=== PATIENT | female | born 1995 | race Caucasian/White ===

== ENCOUNTER → 2018-04-11 14:01 | Outpatient (CLI) | payer BC, SELFPAY ==
[2018-04-11 13:02] VITALS: BMI 27.1
[2018-04-11 14:33] LABS: Absolute Lymphocyte Count 1.66 X10^3/ul (0.83-4.51); Absolute Neutrophil Count 5.7 X10^3/uL (2.0-7.7); Basophil# 0.01 X10^3/uL; Basophil% 0.1 % (0-1); Eosinophil# 0.03 X10^3/uL; Eosinophils% 0.4 % (0-5); Hematocrit 37.9 % (37-47); Hemoglobin 12.7 g/dl (12.0-15.0); Lymphocyte # 1.66 X10^3/ul (4.0); Lymphocyte % 21.2 % (19-41); Mean Corp Hgb Conc 33.5 g/gl (32-36); Mean Corpuscular Hgb 29.5 pg (27.0-32.0); Mean Corpuscular Volume 87.9 fL (81-99); Mean Platelet Vol. 12.1 fl (6.2-12.0); Monocyte# 0.44 X10^3/uL; Monocyte% 5.6 % (0-10); Neutrophil # 5.67 X10^3/uL (2.7-7.7); Neutrophil % 72.6 % (47-70); Platelet Count 137 K/mm3 (150-450); RBC Distribution Width SD 38.1 fl (35.1-43.9); Red Blood Count 4.31 M/mm3 (4.2-5.4); White Blood Count 7.8 K/mm3 (4.4-11.0)
[2018-04-11 14:35] LABS: POSITIVE COUNT NO; POSITIVE DIFFERENTIAL NO; POSITIVE MORPHOLOGY NO
[2018-04-11 16:13] LABS: HIV - WCH Non-Reactive (Nonreactive); Rubella IgG 276.5 IU/mL
[2018-04-11 21:53] LABS: Chlamydia Trachomatis by PCR Negative (Negative); Neisserai gonorrhoeae by PCR Negative (Negative); Probe Check PASS; Sample Adequacy Control PASS; Specimen Processing Control PASS
[2018-04-12 12:05] LABS: HEPATITIS B SURFACE AG Negative (Negative)
[2018-04-13 23:34] LABS: Rapid Plasmin Reagin (RPR) NONREACTIVE (NONREACTIVE)
== END ==
PROVIDERS: Referring Provider Obstetrics & Gynecology; Visit Provider Obstetrics & Gynecology
DX: Z34.90 Encounter for supervision of normal pregnancy, unspecified, unspecified trimester (principal)
CPT/HCPCS: 36415; 85025; 86592; 86703; 86762; 86850; 86900; 87086; 87340; 87491; 87591

== ENCOUNTER → 2018-05-12 16:56 | Outpatient (CLI) | payer BC, SELFPAY ==
[2018-05-12 16:06] VITALS: BMI 27.8
[2018-05-12 17:30] LABS: Absolute Lymphocyte Count 1.85 X10^3/ul (0.83-4.51); Absolute Neutrophil Count 4.7 X10^3/uL (2.0-7.7); Basophil# 0.01 X10^3/uL; Basophil% 0.1 % (0-1); Eosinophil# 0.06 X10^3/uL; Eosinophils% 0.8 % (0-5); Hematocrit 35.6 % (37-47); Hemoglobin 11.8 g/dl (12.0-15.0); Lymphocyte # 1.85 X10^3/ul (4.0); Mean Corp Hgb Conc 33.1 g/gl (32-36); Mean Corpuscular Hgb 28.9 pg (27.0-32.0); Mean Platelet Vol. 12.5 fl (6.2-12.0); Monocyte# 0.48 X10^3/uL; Monocyte% 6.7 % (0-10); Neutrophil # 4.71 X10^3/uL (2.7-7.7); Neutrophil % 66.3 % (47-70); Platelet Count 141 K/mm3 (150-450); RBC Distribution Width CV 11.9 % (11.6-14.6); Red Blood Count 4.09 M/mm3 (4.2-5.4); White Blood Count 7.1 K/mm3 (4.4-11.0)
[2018-05-12 17:31] LABS: POSITIVE COUNT NO; POSITIVE DIFFERENTIAL NO; POSITIVE MORPHOLOGY NO
== END ==
PROVIDERS: Referring Provider Obstetrics & Gynecology; Visit Provider Obstetrics & Gynecology
DX: Z34.81 Encounter for supervision of other normal pregnancy, first trimester (principal)
CPT/HCPCS: 36415; 85025

== ENCOUNTER → 2018-06-09 16:30 | Outpatient (CLI) | payer BC, SELFPAY ==
[2018-06-09 16:17] VITALS: BMI 27.8
== END ==
PROVIDERS: Referring Provider Obstetrics & Gynecology; Visit Provider Obstetrics & Gynecology
DX: Z36.9 Encounter for antenatal screening, unspecified (principal)
CPT/HCPCS: 36415

== ENCOUNTER → 2018-08-11 | Outpatient (CLI) | payer BC, SELFPAY ==
[2018-08-11 16:02] VITALS: BMI 27.8
[2018-08-11 17:12] LABS: Absolute Lymphocyte Count 1.56 X10^3/ul (0.83-4.51); Absolute Neutrophil Count 6.3 X10^3/uL (2.0-7.7); Basophil# 0.01 X10^3/uL; Basophil% 0.1 % (0-1); Eosinophil# 0.04 X10^3/uL; Eosinophils% 0.5 % (0-5); Hemoglobin 11.1 g/dl (12.0-15.0); Lymphocyte # 1.56 X10^3/ul (4.0); Lymphocyte % 18.4 % (19-41); Mean Corp Hgb Conc 33.6 g/gl (32-36); Mean Corpuscular Hgb 29.4 pg (27.0-32.0); Mean Corpuscular Volume 87.5 fL (81-99); Monocyte% 5.9 % (0-10); Platelet Count 124 K/mm3 (150-450); RBC Distribution Width CV 13.2 % (11.6-14.6); RBC Distribution Width SD 42.5 fl (35.1-43.9); Red Blood Count 3.77 M/mm3 (4.2-5.4); White Blood Count 8.5 K/mm3 (4.4-11.0)
[2018-08-11 17:14] LABS: POSITIVE COUNT NO; POSITIVE DIFFERENTIAL NO; POSITIVE MORPHOLOGY NO
[2018-08-11 17:23] LABS: Glucose Challenge Gest 1H 50g 192 mg/dL (70-140)
== END | disposition home or self-care (01) ==
LOC: LAB 16:32
PROVIDERS: Nurse Practitioner Women's Health; Referring Provider Obstetrics & Gynecology; Visit Provider Obstetrics & Gynecology
DX: Z34.90 Encounter for supervision of normal pregnancy, unspecified, unspecified trimester (principal)
CPT/HCPCS: 36415; 82950; 85025

== ENCOUNTER → 2018-08-31 | Outpatient (CLI) | payer BC, SELFPAY ==
[2018-08-11 16:02] VITALS: BMI 27.8
[2018-08-25 13:58] VITALS: BMI 27.8
[2018-08-31 08:06] LABS: Glucose GTT-Gestation. Fasting 80 mg/dL (<105)
[2018-08-31 08:58] LABS: Glucose GTT-Gestational 1 Hr 182 mg/dL (<190)
[2018-08-31 10:35] LABS: Glucose GTT-Gestational 2 Hr 173 mg/dL (<165)
[2018-08-31 11:42] LABS: Glucose GTT-Gestational 3 Hr 67 L (<145)
== END | disposition home or self-care (01) ==
LOC: LAB 07:01
PROVIDERS: Referring Provider Obstetrics & Gynecology; Visit Provider Obstetrics & Gynecology
DX: R73.09 Other abnormal glucose (principal)
CPT/HCPCS: 36415; 82951; 82952

== ENCOUNTER → 2018-09-08 | Outpatient (CLI) | payer BC, SELFPAY ==
[2018-09-08 14:53] VITALS: BMI 27.8
[2018-09-08 17:10] LABS: Absolute Neutrophil Count 6.3 X10^3/uL (2.0-7.7); Basophil# 0.01 X10^3/uL; Basophil% 0.1 % (0-1); Eosinophil# 0.02 X10^3/uL; Eosinophils% 0.2 % (0-5); Hematocrit 36.4 % (37-47); Hemoglobin 12.1 g/dl (12.0-15.0); Lymphocyte % 17.8 % (19-41); Mean Corp Hgb Conc 33.2 g/gl (32-36); Mean Corpuscular Hgb 28.8 pg (27.0-32.0); Mean Corpuscular Volume 86.7 fL (81-99); Mean Platelet Vol. 12.8 fl (6.2-12.0); Monocyte# 0.56 X10^3/uL; Monocyte% 6.7 % (0-10); Neutrophil # 6.25 X10^3/uL (2.7-7.7); Neutrophil % 74.4 % (47-70); Platelet Count 117 K/mm3 (150-450); RBC Distribution Width CV 12.7 % (11.6-14.6); RBC Distribution Width SD 39.2 fl (35.1-43.9); White Blood Count 8.4 K/mm3 (4.4-11.0)
[2018-09-08 17:11] LABS: POSITIVE COUNT NO; POSITIVE DIFFERENTIAL NO; POSITIVE MORPHOLOGY NO
== END | disposition home or self-care (01) ==
LOC: LAB 15:32
PROVIDERS: Referring Provider Nurse Practitioner Women's Health; Visit Provider Nurse Practitioner Women's Health
DX: Z34.90 Encounter for supervision of normal pregnancy, unspecified, unspecified trimester (principal)
CPT/HCPCS: 36415; 85025

== ENCOUNTER 2018-10-02 12:00 | Outpatient (RCR) | payer BC, SELFPAY ==
[2018-09-08 14:53] VITALS: BMI 27.8
[2018-09-22 16:25] VITALS: BMI 27.8
== END 2018-10-04 23:59 ==
LOC: DC 12:00
PROVIDERS: Visit Provider Obstetrics & Gynecology
DX: O24.419 Gestational diabetes mellitus in pregnancy, unspecified control (principal); Z3A.00 Weeks of gestation of pregnancy not specified
CPT/HCPCS: 97802; G0108

== ENCOUNTER → 2018-10-06 | Outpatient (CLI) | payer BC, SELFPAY ==
[2018-10-06 16:10] VITALS: BMI 27.8
[2018-10-06 17:13] LABS: Absolute Lymphocyte Count 2.02 X10^3/uL (0.83-4.51); Absolute Neutrophil Count 6.9 X10^3/uL (2.0-7.7); Basophil# 0.03 X10^3/uL; Basophil% 0.3 % (0-1); Eosinophil# 0.05 X10^3/uL; Eosinophils% 0.5 % (0-5); Hematocrit 36.2 % (37-47); Lymphocyte # 2.02 X10^3/ul (4.0); Lymphocyte % 20.6 % (19-41); Mean Corp Hgb Conc 33.1 g/dL (32-36); Mean Corpuscular Hgb 28.9 pg (27.0-32.0); Mean Corpuscular Volume 87.2 fL (81-99); Mean Platelet Vol. 12.4 fl (6.2-12.0); Monocyte# 0.62 X10^3/uL; Monocyte% 6.3 % (0-10); NRBC Flagged by Analyzer 0 % (0-5); Neutrophil % 70.3 % (47-70); Platelet Count 111 K/mm3 (150-450); RBC Distribution Width CV 12.6 % (11.6-14.6); RBC Distribution Width SD 39.5 fl (35.1-43.9); Red Blood Count 4.15 M/mm3 (4.2-5.4); White Blood Count 9.8 K/mm3 (4.4-11.0)
== END | disposition home or self-care (01) ==
LOC: LAB 16:42
PROVIDERS: Referring Provider Obstetrics & Gynecology; Visit Provider Obstetrics & Gynecology
DX: O99.119 Other diseases of the blood and blood-forming organs and certain disorders involving the immune mechanism complicating pregnancy, unspecified trimester (principal); D69.6 Thrombocytopenia, unspecified; Z3A.00 Weeks of gestation of pregnancy not specified
CPT/HCPCS: 36415; 85025

== ENCOUNTER 2018-10-16 15:30 | Outpatient (RCR) | payer BC, SELFPAY ==
[2018-09-22 16:25] VITALS: BMI 27.8
[2018-10-06 16:10] VITALS: BMI 27.8
== END 2018-10-16 23:59 | disposition home or self-care (01) ==
LOC: DC 15:30
PROVIDERS: Visit Provider Obstetrics & Gynecology
DX: O24.419 Gestational diabetes mellitus in pregnancy, unspecified control (principal); Z3A.00 Weeks of gestation of pregnancy not specified

== ENCOUNTER → 2018-10-20 | Outpatient (CLI) | payer BC, SELFPAY ==
[2018-10-20 16:05] VITALS: BMI 27.8
== END | disposition home or self-care (01) ==
LOC: LABSPEC 17:07
PROVIDERS: Visit Provider Obstetrics & Gynecology
DX: Z34.90 Encounter for supervision of normal pregnancy, unspecified, unspecified trimester (principal)
CPT/HCPCS: 87077; 87081; 87186

== ENCOUNTER → 2018-11-03 | Outpatient (CLI) | payer BC, SELFPAY ==
[2018-11-03 16:00] VITALS: BMI 27.8
[2018-11-03 17:12] LABS: Absolute Lymphocyte Count 2.28 X10^3/uL (0.83-4.51); Absolute Neutrophil Count 8.4 X10^3/uL (2.0-7.7); Basophil# 0.03 X10^3/uL; Basophil% 0.3 % (0-1); Eosinophil# 0.04 X10^3/uL; Eosinophils% 0.3 % (0-5); Hematocrit 39.2 % (37-47); Hemoglobin 13.1 g/dL (12.0-15.0); Lymphocyte # 2.28 X10^3/ul (4.0); Lymphocyte % 19.4 % (19-41); Mean Corp Hgb Conc 33.4 g/dL (32-36); Mean Corpuscular Hgb 29.3 pg (27.0-32.0); Mean Corpuscular Volume 87.7 fL (81-99); Mean Platelet Vol. 12.9 fl (6.2-12.0); Monocyte# 0.78 X10^3/uL; Monocyte% 6.6 % (0-10); NRBC Flagged by Analyzer 0 % (0-5); Neutrophil # 8.44 X10^3/uL (2.7-7.7); Neutrophil % 71.8 % (47-70); Platelet Count 123 K/mm3 (150-450); RBC Distribution Width SD 40.8 fl (35.1-43.9); Red Blood Count 4.47 M/mm3 (4.2-5.4); White Blood Count 11.8 K/mm3 (4.4-11.0)
== END | disposition home or self-care (01) ==
LOC: LAB 16:56
PROVIDERS: Nurse Practitioner Women's Health; Referring Provider Obstetrics & Gynecology; Visit Provider Obstetrics & Gynecology
DX: O99.113 Other diseases of the blood and blood-forming organs and certain disorders involving the immune mechanism complicating pregnancy, third trimester (principal); Z3A.00 Weeks of gestation of pregnancy not specified
CPT/HCPCS: 36415; 85025

== ENCOUNTER 2018-11-08 14:00 | Inpatient (IN) | payer BC, SELFPAY ==
[2018-11-08 09:07] VITALS: BMI 27.8
--- NOTE | 2018-11-08 10:35 | US_ITS ---
STUDY: OBSTETRICAL ULTRASOUND - BIOPHYSICAL PROFILE REASON FOR EXAM: Female, 23 years old. well being. LMP: February 10, 2018. PRIOR ULTRASOUND: None. TECHNIQUE: Transabdominal TECHNICAL QUALITY: Adequate. FINDINGS: There is a single intrauterine fetus. The fetus is in a cephalic presentation. There is demonstrated cardiac activity with a heart rate of 132 bpm. There is a normal amniotic fluid volume. The largest amniotic fluid pocket measures 5.7 cm. The amniotic fluid index (MARISSA) is 16.65 cm. The placenta is fundal in location. There are Grade 3 placental changes. Age by LMP: 38 weeks, 5 days. RUBEN by LMP: November 17, 2018. Gender: Female Low level echoes are noted within the amniotic fluid. BIOPHYSICAL PROFILE: Breathing Movements (FBM): 0 Gross Body Movements (GBM): 0 Tone (FT): 2 Amniotic Fluid Volume (AFV): 2 TOTAL SCORE: 4 / 8 US/Biophysical Prof W/O Non Stres IMPRESSION: biophysical profile of 4/8. Low-level echoes are seen within the amniotic fluid. Electronically Signed: Osiel Gaspar, at 14:08 EDT , Service support ,
[2018-11-08 11:12] VITALS: BMI 35.7
[2018-11-08] MEDS: Lactated Ringers 1,000 ML 50 ML IV (14:25)
[2018-11-08 14:41] LABS: Bedside Glucose 78 mg/dL (70-110)
[2018-11-08 14:47] LABS: Absolute Lymphocyte Count 1.53 X10^3/uL (0.83-4.51); Absolute Neutrophil Count 6.8 X10^3/uL (2.0-7.7); Basophil# 0.03 X10^3/uL; Basophil% 0.3 % (0-1); Eosinophil# 0.01 X10^3/uL; Eosinophils% 0.1 % (0-5); Hematocrit 40.4 % (37-47); Hemoglobin 13.2 g/dL (12.0-15.0); Lymphocyte # 1.53 X10^3/ul (4.0); Lymphocyte % 17.2 % (19-41); Mean Corp Hgb Conc 32.7 g/dL (32-36); Mean Corpuscular Hgb 28.4 pg (27.0-32.0); Mean Corpuscular Volume 87.1 fL (81-99); Mean Platelet Vol. 12.7 fl (6.2-12.0); Monocyte# 0.44 X10^3/uL; Monocyte% 4.9 % (0-10); NRBC Flagged by Analyzer 0 % (0-5); Neutrophil # 6.77 X10^3/uL (2.7-7.7); Neutrophil % 76.3 % (47-70); Platelet Count 119 K/mm3 (150-450); RBC Distribution Width CV 13.2 % (11.6-14.6); RBC Distribution Width SD 41.1 fl (35.1-43.9); Red Blood Count 4.64 M/mm3 (4.2-5.4); White Blood Count 8.9 K/mm3 (4.4-11.0)
[2018-11-08] MEDS: 0.9% Normal Saline 100 ML IV.SOLN. IY (15:15)
[2018-11-08] MEDS: Oxytocin 30 units/NS 500 ml 30 UNITS/500 ML IV.SOLN IV (16:05)
--- NOTE | 2018-11-08 16:49 | PCM.HP.OB ---
- Problem List (1) at 37 weeks gestation or greater with abnormal testing Status: Acute (2) Positive GBS test Status: Acute Comment: clindamycin at labor (3) Polyhydramnios affecting Status: Acute Comment: Weekly NSTs in our office, weekly BPP/AFIs at [facility]. Growth US every 4 weeks. Daily kick counts (4) Gestational diabetes Status: Acute Qualifiers: Comment: growth us q 4 weeks, diabetic diet (5) Gestational thrombocytopenia Status: Acute Qualifiers: Comment: Repeat CBC 4 weeks (6) Status: Acute Qualifiers: Comment: NIPT nl girlcarrier declined, negative AFP. normal anatomy and growth (7) Supervision of normal Status: Acute Qualifiers: Comment: PRR RUBEN 11/17/18 girl argelia TATUM AJ (8) Abnormal Pap smear of cervix Status: Acute Qualifiers: Comment: repeat pap History Date of Admission: 11/08/18 Final RUBEN: 11/17/18 Gestational age: 38 Weeks and 5 Days History of this : This is a 23 year-old, , at 38 weeks gestational age sent for induction of labor secondary to 4 out of 8 BPP and isolated late decelerations on heart rate tracing. Patient is feeling good movement now and overall now has a category 1 tracing and is reassuring. Patient was consented for induction of labor and patient agreed. Patient denies any vaginal bleeding or loss of fluid. She has had a complicated by well-controlled gestational diabetes with diet control.. Medical History: Medical History (Last Reviewed 11/08/18 @ 08:31 by Reta Yeung) ADHD F90.9 Allergies No Known Allergies Allergy (Verified 11/08/18 08:31) Home Medications: Home Medications docosahexanoic acid 200 mg capsule mg PO cap 04/11/18 blood sugar diagnostic strips See Rx Instructions .ROUTE .MEDSUPPLY #100 ea 09/08/18 blood-glucose meter kit See Rx Instructions .ROUTE .MEDSUPPLY #1 ea 09/08/18 lancets 33 gauge See Rx Instructions .ROUTE .MEDSUPPLY #100 ea 10/17/18 Caplet 1 tab PO DAILY 11/08/18 Smoking Status: Never smoker Alcohol: None Number of Fetus(es): 1 NST - FHR Rate Baby A Baseline: 130 Variability:: Moderate Accelerations:: 15 x 15 Decelerations:: None NST Reactive:: Yes FHR Category:: Category I Uterine Activity:: irregular History Past Pregnancies: Past Pregnancies Delivery Date Name GA/Weeks Outcome Route Weight Infant Gender Labor Length Anesthesia Delivery Location Provider FOB Labs: Mom's Labs & Results 11/08/18 11/08/18 11/08/18 14:02 14:25 14:25 WBC 8.9 RBC 4.64 Hgb 13.2 Hct 40.4 MCV 87.1 MCH 28.4 MCHC 32.7 RDW Std Deviation 41.1 RDW Coeff of Kaylee 13.2 Plt Count 119 L MPV 12.7 H Immature Gran % (Auto) 1.200 H Neut % (Auto) 76.3 H Lymph % (Auto) 17.2 L [place] % (Auto) 4.9 Eos % (Auto) 0.1 Baso % (Auto) 0.3 Absolute Neuts (auto) 6.8 Absolute Lymphs (auto) 1.53 Nucleated RBC % 0 POC Glucose 78 Blood Type A POSITIVE Antibody Screen NEGATIVE Course Did the patient receive Yes care? Labs Blood Type: A RH: POSITIVE RPR/VDRL/Syphilis Nonreactive Rubella status Immune HbSAg Negative Date Done: 04/15/18 Chlamydia Negative Gonorrhea Negative HIV/AIDS Non-Reactive Group B Strep: Positive Current Obstetrical History Gestational Diabetes Yes Incompetent Cervix No Infertility No IUGR No Macrosomia No Hypertension/Pre-eclampsia No Placenta Previa/Abruption No: low lying early in PTL/PROM No Uterine anomaly No Oligohydramnios No Polyhydramnios Yes Multiple gestation No Past Medical History Asthma No Diabetes No Hypertension No Heart disease No Mitral valve prolapse No Neurologic/Seizure disorder/ No Migraines Kidney disease No Liver disease No Varicosities No Clotting disorders/Hx of DVT No Thyroid Dysfunction No Other medical diseases No Psychiatric disorders Yes: ADHD Major trauma No Abnormal PAP smear Yes: 01/2018-mishaped cells? didnt need tx Sleep apnea No Mammogram in the last 2 years No Social History Marital Status: Alleged father AJ Hx Smoking No Smoking Status Never smoker How long have you used n/a substances (years)? Expected Infant Delivery Method: Spontaneous Vaginal Review of Systems Constitutional: Denies: Fever, Malaise Eyes: Denies: Blurred vision, Vision Change HEENT: Denies: Head Aches, Visual Changes Cardiovascular: Denies: Chest Pain, Palpitations Respiratory: Denies: Cough, Shortness of Breath, Wheezing Gastrointestinal: Denies: Abdominal Pain, Diarrhea, Nausea, Vomiting Genitourinary: Denies: Dysuria, Hematuria Musculoskeletal: Denies: Joint Pain, Muscle pain Skin: Denies: Lesions, Rash Neurological: Denies: Blurred vision, Focal weakness, Headaches Psychiatric: Denies: Anxiety, Depression Endocrine: Denies: Heat/ Cold Intolerance Hematologic/ Lymphatic: Denies: Easy Bruising, Easy Bleeding Physical Exam General: Alert, Cooperative, No apparent distress HEENT: Atraumatic, Normocephalic. Negative for: Thyromegaly, Lymphadenopathy Cardiovascular: Regular rate Lungs: Normal air movement Abdomen: Soft, Non Tender, Gravid Neurological: Deep Tendon Reflexes 2+/4 and Symmetrical, Neuro grossly intact. Negative for: Clonus MANAGER ARCHITECTURAL: Normal external genitalia. Negative for: Vulvar lesions Estimated gestational size: Appropriate for gestational size Presentation: Cephalic Assessment/Plan All Active Problems (Last Reviewed 11/08/18 @ 08:31 by Reta Yeung) at 37 weeks gestation or greater with abnormal testing (Acute) Positive GBS test (Acute) Polyhydramnios affecting (Acute) Gestational diabetes (Acute) Gestational thrombocytopenia (Acute) (Acute) Supervision of normal (Acute) Abnormal Pap smear of cervix (Acute) Abnormal glucose (Resolved) Low lying placenta nos or without hemorrhage, second trimester (Resolved) This is a 23 year-old, at 38 weeks gestational age presents IOL abnormal testing. Patient presents IOL, plan management for , pitocin/AROM after Jacques bulb comes out.. Pain management: [plans epidural]. GBS positive plan penicillin. Management of any complications: Gestational diabetes diet controlled plan blood sugars every 4 hours in latent phase and q. one hour in active phase of labor goal of blood sugars to be under 150 prior to delivery. I have reviewed the [facility] and made any clinically relevant updates.
[2018-11-08 17:25] LABS: Bedside Glucose 82 mg/dL (70-110)
[2018-11-08] MEDS: Ondansetron 4 MG/2 ML Vial IV (18:46)
[2018-11-08] MEDS: Nalbuphine 10 MG/ML Ampul IV (18:53)
[2018-11-08] MEDS: Lactated Ringers 500 ML 999 ML IV (20:05)
[2018-11-08 21:11] LABS: Bedside Glucose 98 mg/dL (70-110)
[2018-11-08] MEDS: fentaNYL-bupivacaine (epidural) 100 ML BAG EPIDURAL (21:51)
--- NOTE | 2018-11-09 00:44 | PN_ITS ---
Progress Note 150 moderate variability reactive early decelerations category I tracing [place]: regular arom blood tinged bs 98 pcn on continue pit per protocol
--- NOTE | 2018-11-09 00:44 | PCM.PN.BLA ---
Progress Note 150 moderate variability reactive early decelerations category I tracing [place]: regular arom blood tinged bs 98 pcn on continue pit per protocol
[2018-11-09 01:26] LABS: Bedside Glucose 101 mg/dL (70-110)
[2018-11-09] MEDS: Lactated Ringers 1,000 ML 200 ML IV ×2 (02:05→06:48)
[2018-11-09] MEDS: fentaNYL-bupivacaine (epidural) 100 ML BAG EPIDURAL ×2 (02:06→06:48)
[2018-11-09 06:16] LABS: Bedside Glucose 83 mg/dL (70-110)
[2018-11-09 06:16] LABS: Bedside Glucose 93 mg/dL (70-110)
[2018-11-09 07:20] LABS: Bedside Glucose 92 mg/dL (70-110)
[2018-11-09 08:31] LABS: Bedside Glucose 81 mg/dL (70-110)
[2018-11-09 09:30] LABS: Bedside Glucose 77 mg/dL (70-110)
[2018-11-09 10:36] LABS: Bedside Glucose 77 mg/dL (70-110)
--- NOTE | 2018-11-09 11:04 | PCM.PN.BLA ---
Progress Note Patient has been pushing over 3 hours. heart rate tracing starting to have periodic variables. station +4 but maternal effort incomplete. Pelvis feels adequate and patient and has been counseled regarding pelvis feels adequate however she is at a higher risk for shoulder dystocia due to diabetes and estimated weight at 4000 g. Primary is not recommended based on estimated weight alone and due to the descent of the head with effective maternal effort I am confident in vaginal delivery however recommend a double set up to have all resources available if vaginal delivery is not possible. Patient and wish to proceed with vaginal delivery. We will take to the back and perform episiotomy and possible vacuum delivery if needed. if necessary.
[2018-11-09] MEDS: Oxytocin 30 units/NS 500 ml 30 UNITS/500 ML IV.SOLN 334 UNITS IV (11:25)
[2018-11-09] MEDS: Methylergonovine 0.2 MG/ML Ampul IM (11:28)
[2018-11-09 13:21] LABS: Bedside Glucose 89 mg/dL (70-110)
--- NOTE | 2018-11-09 13:45 | PCM.OPRPT ---
Problem List (1) at 37 weeks gestation or greater with abnormal testing Status: Acute (2) Positive GBS test Status: Acute Comment: clindamycin at labor (3) Polyhydramnios affecting Status: Acute Comment: Weekly NSTs in our office, weekly BPP/AFIs at [facility]. Growth US every 4 weeks. Daily kick counts (4) Gestational diabetes Status: Acute Qualifiers: Comment: growth us q 4 weeks, diabetic diet (5) Gestational thrombocytopenia Status: Acute Qualifiers: Comment: Repeat CBC 4 weeks (6) Status: Acute Qualifiers: Comment: NIPT nl girlcarrier declined, negative AFP. normal anatomy and growth (7) Supervision of normal Status: Acute Qualifiers: Comment: PRR RUBEN 11/17/18 girl argelia DEEPTI SANCHEZ (8) Abnormal Pap smear of cervix Status: Acute Qualifiers: Comment: repeat pap Vaginal Delivery Maternal Presentation: Medically Indicated Induction 23-year-old G1, P0 at 38 weeks 5 days presents for induction of labor secondary to abnormal testing with 4 out of 8 BPP and late deceleration on NST in the office. Overall heart tones are reassuring. Patient had gestational diabetes controlled with diet alone and polyhydramnios. Estimated weight of 3750 to 4000 g Method of Induction: Pitocin, Jacques Bulb Medical Reason for Induction: - - Abnormal testing Amniotic Membrane Rupture Type: Artificial Amniotic Fluid Description: Clear Final RUBEN: 11/17/18 Gestational age: 38 Weeks and 6 Days Date of Procedure: 11/09/18 Pre-Operative Diagnosis: GDM A1, recurrent variable decelerations, prolonged second stage Post-Operative Diagnosis: Same Surgery/ Procedure Performed: Vacuum Assisted Vaginal Delivery Type of Anesthesia: Epidural Description of Procedure: Patient proceed to complete dilation and began pushing. Patient had a strong epidural and had a limited sensation and therefore pushing effort was not always adequate at times. Patient continued pushing and after 3-1/2 hours of pushing was at a +4 station with adequate pelvic outlet assessment and estimated weight to be 3750 to 4000 g. Patient was consented for episiotomy and operative vaginal delivery with a double set up in case and patient wished to proceed with vacuum delivery. Right mediolateral episiotomy was cut and vacuum was applied the +4 station the infant was MARTIN 1 pole was made with no pop offs with 1 contraction and the 's head delivered atraumatically MARTIN followed by the anterior posterior shoulders as the infant was delivered through a tight nuchal cord x1. was placed on maternal abdomen terminal meconium was noted. Cord was clamped and cut and the infant was handed off to waiting agricultural sales representative for analysis. No extension of the episiotomy was seen and it was at the level of a second-degree perineal which was repaired in the usual fashion with 3-0 Vicryl repeat. EBL was 600 cc. Patient and infant tolerated the delivery well and were taken recovery in stable condition. Presentation: MARTIN Placental Delivery Description: Spontaneous Cord Vessel Description: 3 Vessels Nuchal Cord Compression: With compression Cord Entanglement: Around neck x 1, loose Drain: Jacques to straight drain Estimated Blood Loss: 600 A gender: Female Episiotomy Description: Right Mediolateral Laceration: Perineal Extension/lac, 2nd degree Medications given after delivery: IV Pitocin Complications: None Multi Select Codes - Urinary/Genital Urinary/Genital CPT Codes: 69462 Episiotomy or vaginal repair, 39872 Vaginal Delivery [facility]
--- NOTE | 2018-11-09 14:50 | NURSING ---
Epidural catheter D/c'd. Blue tip intact.
[2018-11-09] MEDS: Naproxen 250 MG Tablet 500 MG PO (16:56)
[2018-11-09 18:00] VITALS: BP 117/76; PULSE 88; RESP 16; TEMP 36.7
[2018-11-09 19:48] VITALS: BP 122/64; PULSE 85; RESP 18; TEMP 37
[2018-11-09] MEDS: Acetaminophen 500 MG Tablet 1000 MG PO (19:50)
[2018-11-10] VITALS: BP 113/59; PULSE 74; RESP 16; TEMP 36.3
[2018-11-10] MEDS: Naproxen 250 MG Tablet 500 MG PO ×3 (01:01→17:16)
[2018-11-10 04:00] VITALS: BP 106/65; PULSE 82; RESP 16; TEMP 35.9
[2018-11-10] MEDS: Acetaminophen 500 MG Tablet 1000 MG PO ×2 (04:36→14:18)
[2018-11-10 06:15] LABS: Bedside Glucose 84 mg/dL (70-110)
[2018-11-10 08:53] VITALS: BP 107/62; PULSE 66; RESP 16; TEMP 36.5; O2SAT 99
[2018-11-10 14:11] VITALS: BP 97/58; PULSE 70; RESP 16; TEMP 36.2
--- NOTE | 2018-11-10 17:30 | PCM.PN.OB ---
Patient Problems: Active and Suspected Problems (Last Reviewed 11/08/18 @ 08:31 by Reta Yeung) at 37 weeks gestation or greater with abnormal testing (Acute) Subjective: doing well no complaints pain controlled no CP SOB N V ambulating well tolerating po lochia moderate, going well - Physical Exam General: Alert, Oriented x3 Vital Signs Temp Pulse Resp BP Pulse Ox 97.2 F L 70 16 97/58 L 99 11/10/18 14:11 11/10/18 14:11 11/10/18 14:11 11/10/18 14:11 11/10/18 08:53 Oxygen Delivery Method Room Air Weight: 214 lb 11.684 oz Body Mass Index (BMI) 35.7 Intake and Output for Last 24 Hours 11/08/18 11/09/18 11/10/18 23:59 23:59 23:59 Intake Total 1051.81 / 1051.81 3205.77 / 3205.77 Output Total 150 / 150 2775 / 3075 300 / 300 Balance 901.81 / 901.81 430.77 / 130.77 -300 / -300 POC Glucose 11/10/18 06:10 POC Glucose 84 Medical Necessity - Tobacco Use Smoking Status: Never smoker Assessment/Plan All Active Problems (Last Reviewed 11/08/18 @ 08:31 by Reta Yeung) at 37 weeks gestation or greater with abnormal testing (Acute) Positive GBS test (Acute) Polyhydramnios affecting (Acute) Gestational diabetes (Acute) Gestational thrombocytopenia (Acute) (Acute) Supervision of normal (Acute) Abnormal Pap smear of cervix (Acute) Abnormal glucose (Resolved) Low lying placenta nos or without hemorrhage, second trimester (Resolved) s/p PPD # 1 1. routine post delivery care 2. breast feeding- support given 3. rh positive 4. rubella immune
[2018-11-10] MEDS: Senna/Docusate Sodium 1 Tablet PO (18:28)
[2018-11-10 20:00] VITALS: BP 111/56; PULSE 78; RESP 16; TEMP 37.3
--- NOTE | 2018-11-11 01:50 | DCINST_ITS ---
Additional Instructions: If you experience any of the following, contact your healthcare provider. * Bleeding that soaks a pad every hour for 2 hours * Fever 100.4 or higher * Unrelieved incision or abdominal pain * Swelling, redness, discharge or bleeding from your incision or episiotomy site * Your incision begins to separate * Problems urinating (including inability to urinate or burning while urinating). * Visual changes * Severe headache * Flu-like symptoms * Pain or redness in one of both of your breasts * Pain, warmth, tenderness or swelling in your legs, especially the calf area * Frequent nausea and vomiting * Symptoms of depression or anxiety If you experience any of the following, call 911 or go to the nearest Emergency Room. * Chest pain * Problems breathing * Seizure activity * Partial or complete paralysis of a body part, slurred speech, weakness or drooping of the face, or a sudden inability to walk or hold your balance Allergies/Adverse Reactions: Allergies No Known Allergies Allergy (Verified 11/08/18 08:31) Medications to take at Discharge docosahexanoic acid 200 mg capsule mg PO cap 04/11/18 blood sugar diagnostic strips See Rx Instructions .ROUTE .MEDSUPPLY #100 ea 09/08/18 blood-glucose meter kit See Rx Instructions .ROUTE .MEDSUPPLY #1 ea 09/08/18 lancets 33 gauge See Rx Instructions .ROUTE .MEDSUPPLY #100 ea 10/17/18 Caplet 1 tab PO DAILY 11/08/18 Primary Care Physician: Canelo Villarreal MD [Primary Care Provider] - Test Results: Test results from this visit will be discussed in further detail at your follow- up appointment, if applicable.
--- NOTE | 2018-11-11 01:50 | PCM.DCVAG ---
Additional Instructions: If you experience any of the following, contact your healthcare provider. Bleeding that soaks a pad every hour for 2 hours Fever 100.4 or higher Unrelieved incision or abdominal pain Swelling, redness, discharge or bleeding from your incision or episiotomy site Your incision begins to separate Problems urinating (including inability to urinate or burning while urinating). Visual changes Severe headache Flu-like symptoms Pain or redness in one of both of your breasts Pain, warmth, tenderness or swelling in your legs, especially the calf area Frequent nausea and vomiting Symptoms of depression or anxiety If you experience any of the following, call 911 or go to the nearest Emergency Room. Chest pain Problems breathing Seizure activity Partial or complete paralysis of a body part, slurred speech, weakness or drooping of the face, or a sudden inability to walk or hold your balance Allergies/Adverse Reactions: Allergies No Known Allergies Allergy (Verified 11/08/18 08:31) Medications to take at Discharge docosahexanoic acid 200 mg capsule mg PO cap 04/11/18 blood sugar diagnostic strips See Rx Instructions .ROUTE .MEDSUPPLY #100 ea 09/08/18 blood-glucose meter kit See Rx Instructions .ROUTE .MEDSUPPLY #1 ea 09/08/18 lancets 33 gauge See Rx Instructions .ROUTE .MEDSUPPLY #100 ea 10/17/18 Caplet 1 tab PO DAILY 11/08/18 Primary Care Physician: Canelo Villarreal MD [Primary Care Provider] - Test Results: Test results from this visit will be discussed in further detail at your follow-up appointment, if applicable.
[2018-11-11 02:00] VITALS: BP 93/53; PULSE 68; RESP 16; TEMP 36.3
[2018-11-11] MEDS: Naproxen 250 MG Tablet 500 MG PO (09:09)
[2018-11-11] MEDS: Senna/Docusate Sodium 1 Tablet PO (09:09)
[2018-11-11 09:10] VITALS: BP 104/61; PULSE 77; RESP 16; TEMP 36.5; O2SAT 99
--- NOTE | 2018-11-11 09:32 | PCM.PN.OB ---
Patient Problems: Active and Suspected Problems (Last Reviewed 11/08/18 @ 08:31 by Reta Yeung) at 37 weeks gestation or greater with abnormal testing (Acute) Subjective: doing well no complaints pain controlled no CP SOB N V ambulating well tolerating po lochia moderate, going well - Physical Exam General: Alert, Oriented x3 Vital Signs Temp Pulse Resp BP Pulse Ox 97.7 F L 77 16 104/61 99 11/11/18 09:10 11/11/18 09:10 11/11/18 09:10 11/11/18 09:10 11/11/18 09:10 Oxygen Delivery Method Room Air Weight: 214 lb 11.684 oz Body Mass Index (BMI) 35.7 Intake and Output for Last 24 Hours 11/09/18 11/10/18 11/11/18 23:59 23:59 23:59 Intake Total 3205.77 / 3205.77 Output Total 2775 / 3075 300 / 300 Balance 430.77 / 130.77 -300 / -300 Medical Necessity - Tobacco Use Smoking Status: Never smoker Assessment/Plan All Active Problems (Last Reviewed 11/08/18 @ 08:31 by Reta Yeung) at 37 weeks gestation or greater with abnormal testing (Acute) Positive GBS test (Acute) Polyhydramnios affecting (Acute) Gestational diabetes (Acute) Gestational thrombocytopenia (Acute) (Acute) Supervision of normal (Acute) Abnormal Pap smear of cervix (Acute) Abnormal glucose (Resolved) Low lying placenta nos or without hemorrhage, second trimester (Resolved) s/p PPD # 2 1. routine post delivery care 2. breast feeding- support given 3. rh positive 4. rubella immune
--- NOTE | 2018-11-11 13:47 | NURSING ---
discharge talk done pt verbalizes understanding d/c papers reviewed and given; pt denies any further need for infant or maternal care teaching.
[2018-11-11 14:09] VITALS: BP 98/53; PULSE 85; RESP 15; TEMP 36.6
--- NOTE | 2018-11-11 15:36 | NURSING ---
1515 placed in car seat per parents dc to home
== END 2018-11-11 15:15 | disposition home or self-care (01) | DRG 806 ==
LOC: WPOUT 14:19 → WP 11-09 07:14
PROVIDERS: Admitting Provider Obstetrics & Gynecology; Referring Provider Obstetrics & Gynecology; Visit Provider Obstetrics & Gynecology
DX: O24.420 Gestational diabetes mellitus in childbirth, diet controlled (principal); O98.82 Other maternal infectious and parasitic diseases complicating childbirth; Z37.0 Single live birth; O99.12 Other diseases of the blood and blood-forming organs and certain disorders involving the immune mechanism complicating childbirth; B95.1 Streptococcus, group B, as the cause of diseases classified elsewhere; O40.3XX0 Polyhydramnios, third trimester, not applicable or unspecified; D69.6 Thrombocytopenia, unspecified; O69.1XX0 Labor and delivery complicated by cord around neck, with compression, not applicable or unspecified; O77.0 Labor and delivery complicated by meconium in amniotic fluid; O70.1 Second degree perineal laceration during delivery; O76 Abnormality in fetal heart rate and rhythm complicating labor and delivery; Z3A.38 38 weeks gestation of pregnancy
CPT/HCPCS: 59025; 59050; 76819; 82962; 85025; 86850; 86900; 86901; 99218; J7120; G0378; J2405

== ENCOUNTER → 2018-12-21 | Outpatient (CLI) | payer BC, SELFPAY ==
[2018-12-21 13:29] LABS: Glucose 2 Hour Postprandial 70 mg/dL (<140)
== END | disposition home or self-care (01) ==
LOC: LAB 09:22
PROVIDERS: Nurse Practitioner Women's Health; Referring Provider Obstetrics & Gynecology; Visit Provider Obstetrics & Gynecology
DX: O24.419 Gestational diabetes mellitus in pregnancy, unspecified control (principal); Z3A.00 Weeks of gestation of pregnancy not specified
CPT/HCPCS: 36415; 82950

== ENCOUNTER → 2020-01-28 15:30 | Outpatient (CLI) | payer BC, SELFPAY ==
[2020-01-28 14:49] VITALS: BMI 28.8
[2020-01-28 18:25] LABS: Amphetamine Urine VISTA NEGATIVE (<1000 ng/mL); Barbiturate Urine VISTA NEGATIVE (< 200 ng/mL); Benzodiazepine Urine VISTA NEGATIVE (< 200 ng/mL); Cocaine Urine VISTA NEGATIVE (< 300 ng/mL); Ecstacy Urine VISTA NEGATIVE (< 500 ng/mL); Methadone Urine VISTA NEGATIVE (< 300 ng/mL); PCP Urine VISTA NEGATIVE (< 25 ng/mL); THC Urine VISTA NEGATIVE (< 50 ng/mL); Vista UDS pH Range 6
[2020-01-31 03:07] LABS: Chlamydia By Nucleic Acid AMP Negative (Negative)
[2020-01-31 08:46] LABS: Gonococcus By Nucleic Acid AMP Negative (Negative)
[2020-02-01 15:36] LABS: HPV Reflexed? NOT INDICATED
== END ==
PROVIDERS: Referring Provider Obstetrics & Gynecology; Visit Provider Obstetrics & Gynecology
DX: Z12.4 Encounter for screening for malignant neoplasm of cervix (principal); Z34.80 Encounter for supervision of other normal pregnancy, unspecified trimester
CPT/HCPCS: 80307; 87086; 87088; 87491; 87591; 88175; G0145

== ENCOUNTER → 2020-02-27 14:30 | Outpatient (CLI) | payer BC, SELFPAY ==
[2020-01-28 14:49] VITALS: BMI 28.8
[2020-02-27 15:25] LABS: Absolute Lymphocyte Count 1.98 X10^3/uL (0.83-4.51); Absolute Neutrophil Count 5.7 X10^3/uL (2.0-7.7); Basophil# 0.02 X10^3/uL; Basophil% 0.2 % (0-1); Eosinophil# 0.05 X10^3/uL; Eosinophils% 0.6 % (0-5); Hemoglobin 12.3 g/dL (12.0-15.0); Lymphocyte # 1.98 X10^3/ul (4.0); Lymphocyte % 24.2 % (19-41); Mean Corp Hgb Conc 33.2 g/dL (32-36); Mean Corpuscular Hgb 29.1 pg (27.0-32.0); Mean Corpuscular Volume 87.5 fL (81-99); Mean Platelet Vol. 12.5 fl (6.2-12.0); Monocyte# 0.36 X10^3/uL; Monocyte% 4.4 % (0-10); NRBC Flagged by Analyzer 0 % (0-5); Neutrophil # 5.72 X10^3/uL (2.7-7.7); Neutrophil % 70.1 % (47-70); Platelet Count 152 K/mm3 (150-450); RBC Distribution Width CV 12.3 % (11.6-14.6); RBC Distribution Width SD 39.3 fl (35.1-43.9); Red Blood Count 4.23 M/mm3 (4.2-5.4); White Blood Count 8.2 K/mm3 (4.4-11.0)
[2020-02-27 15:31] LABS: Glucose Challenge Gest 1H 50g 147 mg/dL (70-140)
[2020-02-27 16:26] LABS: HIV - WCH Non-Reactive (Nonreactive); Hepatitis B Surface Antigen Non-Reactive (Nonreactive); Hepatitis C Antibody Non-Reactive (Nonreactive); Rubella IgG Reactive (Nonreactive)
[2020-02-28 02:22] LABS: Rapid Plasmin Reagin (RPR) NONREACTIVE (NONREACTIVE)
== END ==
PROVIDERS: Referring Provider Obstetrics & Gynecology; Visit Provider Obstetrics & Gynecology
DX: O09.299 Supervision of pregnancy with other poor reproductive or obstetric history, unspecified trimester (principal); Z86.32 Personal history of gestational diabetes; Z3A.00 Weeks of gestation of pregnancy not specified
CPT/HCPCS: 36415; 82950; 85025; 86592; 86703; 86762; 86803; 86850; 86900; 86901; 87340

== ENCOUNTER → 2020-02-27 15:20 | Outpatient (CLI) | payer BC, SELFPAY ==
[2020-02-27 14:59] VITALS: BMI 29.2
== END ==
PROVIDERS: Referring Provider Obstetrics & Gynecology; Visit Provider Obstetrics & Gynecology
DX: Z34.81 Encounter for supervision of other normal pregnancy, first trimester (principal)
CPT/HCPCS: 36415

== ENCOUNTER → 2020-03-03 07:02 | Outpatient (CLI) | payer BC, SELFPAY ==
[2020-02-27 14:59] VITALS: BMI 29.2
[2020-03-03 07:37] LABS: Glucose GTT-Gestation. Fasting 92 mg/dL (<105)
[2020-03-03 08:33] LABS: Glucose GTT-Gestational 1 Hr 154 mg/dL (<190)
[2020-03-03 09:40] LABS: Glucose GTT-Gestational 2 Hr 111 mg/dL (<165)
[2020-03-03 11:01] LABS: Glucose GTT-Gestational 3 Hr 59 L (<145)
== END ==
PROVIDERS: Referring Provider Obstetrics & Gynecology; Visit Provider Obstetrics & Gynecology
DX: O99.810 Abnormal glucose complicating pregnancy (principal); Z3A.00 Weeks of gestation of pregnancy not specified
CPT/HCPCS: 36415; 82951; 82952

== ENCOUNTER 2020-05-28 19:45 | Outpatient (CLI) | payer OTHER, SELFPAY ==
[2020-05-23 15:35] VITALS: BMI 32.5
[2020-05-28] VITALS (34 sets, daily range): BP systolic 107–131; BP diastolic 55–71; PULSE 78–96; RESP 16–18; TEMP 36.3–37.4; O2SAT 97–100; BMI 33.6
[2020-05-28 20:50] LABS: Color, Urine Straw (Yellow); Glucose, Dipstick Normal (Normal); Ketone-Dipstick Negative (Negative); Leukocyte Esterase-Dipstick Negative /ul (Negative); Nitrite-Dipstick Negative (Negative); Occult Blood-Urine 10 /ul (Negative); Protein-Dipstick Negative (Negative); Specific Gravity, Urine 1.005 (1.002-1.030); Urine Bilirubin Dipstick Negative (Negative); Urine Clarity Clear (Clear); Urine Urobilinogen Normal (Normal)
[2020-05-28] MEDS: Lactated Ringers 500 ML 15 ML IV (21:05)
--- NOTE | 2020-05-28 21:06 | OB.TRI.NOTE ---
- Problem List (1) Complete placenta previa nos or without hemorrhage, second trimester Status: Acute Comment: repeat US @ 28 wks. Pelvic rest (2) Abnormal glucose affecting Status: Acute Comment: 3 hr GTT normal (3) H/O polyhydramnios Status: Acute (4) H/O gestational diabetes in prior , currently Status: Acute Comment: nl 1h GCT (5) Supervision of other normal Status: Acute Comment: PRR RUBEN 09/12/20 girl Annabelle PC: Cleopatra AJ (6) Status: Acute Qualifiers: Comment: declines carrier. genetic low risk. declined afp. anatomy reviewed. (7) Abnormal Pap smear of cervix Status: Acute Qualifiers: Comment: Reports abnormal in 2018 - repeat done at NO History of Present Illness Date of Service: 05/28/20 Reason For Visit: BLEEDING Date of Service: 05/28/20 Final RUBEN: 09/12/20 Gestational age: 24 Weeks and 5 Days History of Present Illness: 25-year-old G3, P1 at 24 weeks 5 days gestation with a known placenta previa presents for vaginal bleeding. Patient reports that she noticed dark brown spotting starting at approximately 630 this evening when she wiped. Reports that blood had turned into more like light pink on the toilet paper when she wiped by the time she had arrived. Was not having enough bleeding that it was getting on her underwear or that she had to wear a pad. Denies contractions or cramping. Denies leakage of fluid. Reports normal movement. Patient has been compliant with pelvic rest. Allergies No Known Allergies Allergy (Verified 04/25/20 14:59) - Pertinent Past Medical History Medical History: Past Medical History (Last Reviewed 04/25/20 @ 14:59 by Reta Yeung) ADHD Gestational diabetes Laboratory Studies: Laboratory Tests 05/28/20 Range/Units 20:20 Urine Color Straw (Yellow) Urine Clarity Clear (Clear) Urine pH 7.0 (5.0 - 8.0) Ur Specific [place] 1.005 (1.002-1.030) Urine Protein Negative (Negative) mg/dl Urine Glucose (UA) Normal (Normal) mg/dl Urine Ketones Negative (Negative) mg/dl Urine Occult Blood 10 H (Negative) /ul Urine Nitrite Negative (Negative) Urine Bilirubin Negative (Negative) mg/dL Urine Urobilinogen Normal (Normal) mg/dl Ur Leukocyte Esterase Negative (Negative) /ul Review of Systems Constitutional: Denies: Chills, Fever Cardiovascular: Denies: Chest Pain, Light Headedness Respiratory: Denies: Shortness of Breath Gastrointestinal: Denies: Abdominal Pain, Melena, Vomiting Genitourinary: Denies: Dysuria, Frequency, Urgency Gynecological: Reports: Vaginal bleeding. Denies: Vaginal discharge, Vaginal itching Neurological: Denies: Numbness, Tingling Physical Exam Vitals: Vital Signs Temp Pulse BP Pulse Ox 98.0 F 78 131/71 H 99 05/28/20 20:00 05/28/20 20:00 05/28/20 20:00 05/28/20 20:00 General: Alert, Oriented x3, Cooperative, No apparent distress, Well developed, Well nourished HEENT: Atraumatic, PERRLA, EOMI, Normocephalic Cardiovascular: Regular rate Lungs: Normal air movement Abdomen: Soft, Non Tender, Non-Distended, Gravid, Appropriate for Gestational Age Extremities:: No edema Neurological: Cranial nerves II-XII grossly intact, Neuro grossly intact TRUCK TRAILER FINAL INSPECTOR: Normal external genitalia Estimated gestational size: Appropriate for gestational size Cervix Dilation (cm): 0 - 20 to 30 cc of dark red blood in the vault on speculum exam NST - FHR Rate Baby A Baseline: 130 Variability:: Moderate Accelerations:: 10 x 10 Decelerations:: None NST Reactive:: Appropriate for gestational age - Difficulty tracing due to movement and early gestational age FHR Category:: Category I Uterine Activity:: No contractions Impression/Plan 25-year-old G3, P1 at 24 weeks 5 days gestation presents for vaginal bleeding in the setting of a complete placenta previa. Vaginal bleeding -Patient with known placenta previa identified on anatomy scan at 20 weeks. -Presents with approximately 3 hours of vaginal bleeding. Bleeding at home was primarily dark brown. -On exam, patient has approximately 20 to 30 cc of dark red blood in the vault. No evidence of active bleeding. Does have a few small clots in the vault. Cervix visually closed. -No contractions on toco. heart rate category 1 when able to trace. -Discussed with patient that given significant amount of red vaginal bleeding in the setting of a placenta previa, recommend transport to facility that stable to care for a 25-week infant in the event of delivery. Patient discussed with Dr. Leung who accepts the transport. -Betamethasone administered in triage. -Magnesium sulfate started for neuro protection. -IV access obtained. CBC and coags ordered. -Patient voices understanding and is agreeable with plan of care. Multi Select Codes - Visit Charges Office Visit/Consults: [id number] OV L4 Est
[2020-05-28] MEDS: Magnesium Sulfate 4gm/100mL 4 GM/100 ML IV.SOLN. IV (21:07)
[2020-05-28] MEDS: Betamethasone/Betamethasone 30 MG/5 ML Vial 12 MG IM (21:12)
[2020-05-28 21:18] LABS: Absolute Lymphocyte Count 2.16 X10^3/uL (0.83-4.51); Basophil# 0.02 X10^3/uL; Basophil% 0.2 % (0-1); Eosinophil# 0.06 X10^3/uL; Eosinophils% 0.7 % (0-5); Hematocrit 34.4 % (37-47); Hemoglobin 11.5 g/dL (12.0-15.0); Lymphocyte # 2.16 X10^3/ul (4.0); Lymphocyte % 23.9 % (19-41); Mean Corp Hgb Conc 33.4 g/dL (32-36); Mean Corpuscular Hgb 28.9 pg (27.0-32.0); Mean Corpuscular Volume 86.4 fL (81-99); Monocyte% 7.8 % (0-10); NRBC Flagged by Analyzer 0 % (0-5); Neutrophil # 5.99 X10^3/uL (2.7-7.7); Neutrophil % 66.3 % (47-70); Platelet Count 139 K/mm3 (150-450); RBC Distribution Width CV 12.9 % (11.6-14.6); Red Blood Count 3.98 M/mm3 (4.2-5.4)
[2020-05-28] MEDS: Magnesium Sulfate 4gm/100mL 2 GM/50 ML IV.SOLN. IV (21:32)
[2020-05-28 21:43] LABS: Fibrinogen 398 mg/dl (203-444); Partial Thromboplast Time 25.5 Seconds (24.1-36.2)
[2020-05-28] MEDS: Magnesium Sulfate 20 GM/500 ML BAG IV (21:43)
[2020-05-29 00:28] VITALS: BP 111/66; PULSE 83
[2020-05-29 00:30] VITALS: BP 111/66; PULSE 83; RESP 18; TEMP 36.7; O2SAT 99
[2020-05-29 01:15] VITALS: BP 106/55; PULSE 88; RESP 16; TEMP 36.6; O2SAT 99
[2020-05-29 02:04] VITALS: BP 116/64; PULSE 90; RESP 18; TEMP 36.6; O2SAT 99
--- NOTE | 2020-06-10 10:31 | NURSING ---
IV stop time entered for payment purposes. IV was running (magnesium and LR upon transfer)
== END 2020-05-29 02:05 | disposition home or self-care (01) ==
LOC: WPOUT 19:49 → OBT 19:49
PROVIDERS: Visit Provider Obstetrics & Gynecology
DX: O44.12 Complete placenta previa with hemorrhage, second trimester (principal); Z3A.24 24 weeks gestation of pregnancy
CPT/HCPCS: 96365; 96366; 59025; 59050; 81002; 85025; 85384; 85610; 85730; 96372; 99218; G0378; J0702

== ENCOUNTER → 2020-06-09 06:46 | Outpatient (CLI) | payer OTHER, SELFPAY ==
[2020-05-28 21:34] VITALS: BMI 33.6
[2020-06-09 08:38] LABS: Glucose GTT-Gestation. Fasting 82 mg/dL (<105)
[2020-06-09 09:30] LABS: Glucose GTT-Gestational 1 Hr 173 mg/dL (<190)
[2020-06-09 11:06] LABS: Glucose GTT-Gestational 2 Hr 143 mg/dL (<165)
[2020-06-09 11:07] LABS: Glucose GTT-Gestational 3 Hr 67 L (<145)
== END ==
PROVIDERS: Referring Provider Obstetrics & Gynecology; Visit Provider Obstetrics & Gynecology
DX: O99.810 Abnormal glucose complicating pregnancy (principal); Z3A.00 Weeks of gestation of pregnancy not specified
CPT/HCPCS: 36415; 82951; 82952

== ENCOUNTER 2020-06-28 00:06 | Outpatient (CLI) | payer OTHER, SELFPAY ==
[2020-06-20 15:07] VITALS: BMI 34.2
[2020-06-28 00:17] VITALS: BP 128/64; PULSE 85; TEMP 37.2; O2SAT 99
[2020-06-28 00:23] VITALS: BMI 34.7
[2020-06-28 01:10] LABS: ROM Internal Control Test YES-OK TO RESULT pt. (Internal QC)
[2020-06-28 01:11] LABS: ROM Patient Test POSITIVE (Negative)
--- NOTE | 2020-06-28 01:31 | OB.TRI.NOTE ---
- Problem List (1) Leakage, amniotic fluid Status: Acute (2) Polyhydramnios affecting Status: Acute Comment: needs weekly NST- growth q4. (3) Need for dqkussufkc-iqxhxrj-ljekfupsy (Tdap) vaccine Status: Acute Comment: Given 06/20/20 (4) Complete placenta previa nos or without hemorrhage, second trimester Status: Acute Comment: repeat US @ 28 wks. Pelvic rest; US 06/24- low lying placenta- f/u @ 32 weeks (5) Abnormal glucose affecting Status: Acute Comment: 3 hr GTT normal (6) H/O polyhydramnios Status: Acute (7) H/O gestational diabetes in prior , currently Status: Acute Comment: nl 1h GCT (8) Supervision of other normal Status: Acute Comment: PRR RUBEN 09/12/20 girl Annabelle PC: Cleopatra AJ (9) Status: Acute Qualifiers: Comment: declines carrier. genetic low risk. declined afp. anatomy reviewed. (10) Abnormal Pap smear of cervix Status: Acute Qualifiers: Comment: Reports abnormal in 2018 - repeat done at [facility] History of Present Illness Date of Service: 06/28/20 Was patient seen by the physician?: Yes Reason For Visit: BLEEDING Date of Service: 06/28/20 Final RUBEN: 09/12/20 Gestational age: 29 Weeks and 1 Days History of Present Illness: 25-year-old G2, P1 at 29 weeks gestation presenting after having a large gush of bloody fluid at home. Patient has had continued brown bleeding since this time. Reports that when she had the initial gush, she noticed one strong cramp. Denies further contractions or cramping since this time. She has a known low-lying placenta. Previously a placenta previa. She was admitted on May 28 due to bleeding with placenta previa. She received steroids at that time. Allergies No Known Allergies Allergy (Verified 06/28/20 00:22) - Pertinent Past Medical History Medical History: Past Medical History (Last Reviewed 06/20/20 @ 15:07 by Sary Pace) ADHD Gestational diabetes Laboratory Studies: Laboratory Tests 06/28/20 Range/Units 00:37 Vag Amniotic Fld Detect POSITIVE H (Negative) Review of Systems Constitutional: Denies: Chills, Fever Cardiovascular: Denies: Chest Pain Respiratory: Denies: Shortness of Breath Gastrointestinal: Denies: Abdominal Pain, Nausea, Vomiting Genitourinary: Denies: Dysuria, Frequency Gynecological: Reports: Vaginal bleeding, Vaginal discharge. Denies: Vaginal itching Physical Exam Vitals: Vital Signs Temp Pulse BP Pulse Ox 99.0 F 85 128/64 H 99 06/28/20 00:17 06/28/20 00:17 06/28/20 00:17 06/28/20 00:17 General: Alert, Oriented x3, Cooperative, No apparent distress, Well developed, Well nourished HEENT: Atraumatic, PERRLA, EOMI, Normocephalic Cardiovascular: Regular rate Lungs: Normal air movement Abdomen: Soft, Non Tender, Non-Distended, Gravid, Appropriate for Gestational Age, - - No fundal tenderness Extremities:: No edema Neurological: Cranial nerves II-XII grossly intact, Neuro grossly intact PYROMETALLURGICAL ENGINEER: Normal external genitalia Estimated gestational size: Appropriate for gestational size Presentation: Cephalic Cervix Dilation (cm): 0 - Visually NST - FHR Rate Baby A Baseline: 130 Variability:: Moderate Accelerations:: 15 x 15 Decelerations:: None NST Reactive:: Yes FHR Category:: Category I Uterine Activity:: Irritability Impression/Plan 25-year-old G2, P1 at 29 weeks gestation presenting with vaginal bleeding Vaginal bleeding/low-lying placenta -Patient with large gush of bloody fluid earlier this -No active bleeding on vaginal exam, but 1 Carranza swab of dark red blood in the vault noted -Cervix visually closed -ROM plus positive. Discussed that this could be related to bleeding, but verified with lab that this appears to be a true positive -Bedside MARISSA does show a DVP of 6, but still concerned for a slow leak of fluid -Given bleeding with positive ROM in the setting of a low-lying placenta, plan for transport to [facility] -Talk to Dr. Queen from [facility]-as patient not mc no indication for transfer to [facility]. We will go ahead and start latency antibiotics. Previous steroids given on 05/28. Rescue steroids given Multi Select Codes - Visit Charges Office Visit/Consults: 96118 OV L4 Est - Urinary/Genital Urinary/Genital CPT Codes: 96369-16 non-stress test Interp
[2020-06-28] MEDS: Betamethasone/Betamethasone 30 MG/5 ML Vial 12 MG IM (02:09)
[2020-06-28 02:16] LABS: Absolute Lymphocyte Count 2.08 X10^3/uL (0.83-4.51); Absolute Neutrophil Count 5.7 X10^3/uL (2.0-7.7); Basophil# 0.02 X10^3/uL; Basophil% 0.2 % (0-1); Eosinophil# 0.04 X10^3/uL; Eosinophils% 0.5 % (0-5); Hematocrit 33.4 % (37-47); Hemoglobin 10.7 g/dL (12.0-15.0); Lymphocyte # 2.08 X10^3/ul (0.83-4.51); Mean Corpuscular Hgb 27.4 pg (27.0-32.0); Mean Corpuscular Volume 85.4 fL (81-99); Mean Platelet Vol. 12.7 fl (6.2-12.0); Monocyte% 6.9 % (0-10); NRBC Flagged by Analyzer 0 % (0-5); Neutrophil # 5.74 X10^3/uL (2.7-7.7); Neutrophil % 66.4 % (47-70); Platelet Count 115 K/mm3 (150-450); RBC Distribution Width CV 12.6 % (11.6-14.6); RBC Distribution Width SD 39.1 fl (35.1-43.9); Red Blood Count 3.91 M/mm3 (4.2-5.4); White Blood Count 8.7 K/mm3 (4.4-11.0)
== END 2020-06-28 02:45 | disposition short-term general hospital (02) ==
LOC: WPOUT 00:11 → WP 00:12
PROVIDERS: Visit Provider Obstetrics & Gynecology
DX: O44.53 Low lying placenta with hemorrhage, third trimester (principal); Z3A.29 29 weeks gestation of pregnancy
CPT/HCPCS: 96365; 96367; 36415; 59025; 59050; 76815; 84112; 85025; 96372; 99218; G0378; J0702

== ENCOUNTER 2020-06-30 18:15 | Outpatient (CLI) | payer OTHER, SELFPAY ==
--- NOTE | 2020-06-30 18:20 | US_ITS ---
STUDY: SECOND AND THIRD TRIMESTER OBSTETRICAL ULTRASOUND - LIMITED REASON FOR EXAM: Female, 25 years old ATTENTION PLACENTA -- known low lying placenta -- bleeding LMP: PRIOR ULTRASOUND: None. TECHNIQUE: Transabdominal TECHNICAL QUALITY: Adequate. FINDINGS: There is a single intrauterine fetus. The fetus is in a cephalic presentation. There is demonstrated cardiac activity with a heart rate of 150 bpm. There is a normal amniotic fluid volume. The largest amniotic fluid pocket measures 9.2 cm. The amniotic fluid index (MARISSA) is 26.4 cm. The placenta is anterior and low-lying There are Grade 2 placental changes. Age by LMP: 29 weeks, 3 days. RUBEN by LMP: 09/12/2020. US/OB Limited (No Biometrics) IMPRESSION: Viable intrauterine gestation approximately 29-30 weeks gestational age. Persistent anterior low-lying placenta without evidence for abruption. Electronically Signed: Nigel Iqbal MD at 22:04 EDT , Service support ,
[2020-06-30 18:39] VITALS: BP 125/66; PULSE 93; PULSE 96; TEMP 37; O2SAT 98
[2020-06-30 19:19] VITALS: BP 124/63; PULSE 101; TEMP 36.8; O2SAT 96
[2020-06-30] MEDS: Lactated Ringers 1,000 ML 200 ML IV (19:25)
[2020-06-30 19:39] LABS: Absolute Lymphocyte Count 2.23 X10^3/uL (0.83-4.51); Absolute Neutrophil Count 6.8 X10^3/uL (2.0-7.7); Basophil# 0.04 X10^3/uL; Basophil% 0.4 % (0-1); Eosinophil# 0.02 X10^3/uL; Eosinophils% 0.2 % (0-5); Hemoglobin 10.3 g/dL (12.0-15.0); Lymphocyte # 2.23 X10^3/ul (0.83-4.51); Lymphocyte % 21.6 % (19-41); Mean Corp Hgb Conc 32.2 g/dL (32-36); Mean Corpuscular Hgb 27.7 pg (27.0-32.0); Mean Platelet Vol. 12.7 fl (6.2-12.0); Monocyte# 0.77 X10^3/uL; Monocyte% 7.4 % (0-10); NRBC Flagged by Analyzer 0 % (0-5); Neutrophil # 6.81 X10^3/uL (2.7-7.7); Neutrophil % 65.9 % (47-70); Platelet Count 122 K/mm3 (150-450); RBC Distribution Width CV 12.5 % (11.6-14.6); RBC Distribution Width SD 39.2 fl (35.1-43.9); Red Blood Count 3.72 M/mm3 (4.2-5.4); White Blood Count 10.3 K/mm3 (4.4-11.0)
[2020-06-30] MEDS: Lactated Ringers 1,000 ML 15 ML IV (19:43)
[2020-06-30 19:57] VITALS: BMI 34.7
[2020-06-30 20:06] LABS: Fibrinogen 321 mg/dl (203-444)
[2020-06-30 23:58] VITALS: BP 116/57; PULSE 91; TEMP 36.1
[2020-07-01 03:39] VITALS: BP 88/46; PULSE 75
[2020-07-01 04:52] VITALS: BP 95/49; PULSE 75
[2020-07-01 07:12] VITALS: BP 111/68; PULSE 81; PULSE 83; TEMP 36.7; O2SAT 98
[2020-07-01 07:31] LABS: Fibrinogen 331 mg/dl (203-444)
[2020-07-01 08:09] LABS: Absolute Neutrophil Count 5.4 X10^3/uL (2.0-7.7); Basophil# 0.03 X10^3/uL; Basophil% 0.4 % (0-1); Eosinophil# 0.05 X10^3/uL; Eosinophils% 0.6 % (0-5); Hemoglobin 9.6 g/dL (12.0-15.0); Lymphocyte % 22.6 % (19-41); Mean Corpuscular Hgb 27.9 pg (27.0-32.0); Mean Corpuscular Volume 87.2 fL (81-99); Mean Platelet Vol. 12.4 fl (6.2-12.0); Monocyte# 0.67 X10^3/uL; NRBC Flagged by Analyzer 0 % (0-5); Neutrophil # 5.37 X10^3/uL (2.7-7.7); POSITIVE COUNT YES; Platelet Count 97 K/mm3 (150-450); RBC Distribution Width CV 12.6 % (11.6-14.6); RBC Distribution Width SD 39.9 fl (35.1-43.9); Red Blood Count 3.44 M/mm3 (4.2-5.4); White Blood Count 8.4 K/mm3 (4.4-11.0)
[2020-07-01 08:53] LABS: Differential Indicated SCAN CRITERIA MET
[2020-07-01 08:54] LABS: Differential Comment SCANNED; Platelet Estimate SLT DEC (ADEQ)
[2020-07-01 09:44] LABS: Hematocrit 33.8 % (37-47); Hemoglobin 10.7 g/dL (12.0-15.0); Mean Corp Hgb Conc 31.7 g/dL (32-36); Mean Corpuscular Hgb 27.4 pg (27.0-32.0); Mean Corpuscular Volume 86.7 fL (81-99); Mean Platelet Vol. 12.6 fl (6.2-12.0); Platelet Count 112 K/mm3 (150-450); RBC Distribution Width CV 12.6 % (11.6-14.6); RBC Distribution Width SD 40.1 fl (35.1-43.9); White Blood Count 9.6 K/mm3 (4.4-11.0)
[2020-07-01 09:55] LABS: Fibrinogen 352 mg/dl (203-444); Partial Thromboplast Time 23.4 Seconds (24.1-36.2); Prothrombin Time (Protime)PT. 12.3 SECONDS (11.7-14.9)
--- NOTE | 2020-07-01 11:23 | PCM.DC ---
Discharge Instructions Outpatient Procedure Reason For Visit: BLEEDING Follow Up Care Test Results: Test results from this visit will be discussed in further detail at your follow-up appointment, if applicable. Discharge Plan Admission Reason For Visit: BLEEDING Attending Provider: Yolanda Gunter Primary Care Provider: Care Physician,No Primary Discharge Orders/Prescriptions Prescriptions: No Action PNV-DHA 27 mg iron-1 mg -300 mg capsule 1 cap PO DAILY RF: 0 Referrals: Care Physician,No Primary [Primary Care Provider] -
[2020-07-01 11:28] VITALS: BP 117/64; PULSE 81; PULSE 82; TEMP 36.8; O2SAT 99
--- NOTE | 2020-07-01 15:07 | OB.TRI.HP_ITS ---
HPI - General HPI Narrative JOAO RAMIREZ, is a 25 F who presents for vaginal bleeding and . She has a history of placenta previa and has had several bleeding episodes and known anemia and gestational thrombocytopenia with previous fibrinogen levels being in the mid 100s and platelets being 100-130. She was seen over the weekend and transported to [facility] due to possible rupture membranes which was ruled out. She was given a course of rescue steroids at this time. Today she had an episode of bleeding without clot but enough to be seen on a pad and therefore she presents for evaluation. She denies any regular contractions admits good movement [facility] Medical History (Updated 07/01/20 @ 17:[address] Yolanda Gunter MD) ADHD Gestational diabetes Home Medications multivitamin no.47-iron fum 27 mg-folate no.1 1 mg-dha 300 mg capsule 1 cap PO DAILY 01/22/20 [History Last Taken 06/30/20 09:00] Allergy/AdvReac Type Severity Reaction Status Date / Time No Known Allergies Allergy Verified 06/30/20 19:57 Family History Father Diabetes Hypertension Grandmother Hypertension Uncle Asthma Hypertension Heart disease Social History (Updated 06/20/20 @ 15:[address] Kasandra Mccann MD) household members: family number of children: 1 current occupational status: employed Smoking Status: Never smoker second hand exposure: No alcohol intake: never substance use type: does not use caffeine: No what type of physical activity do you participate in: none seatbelt use: always do you feel safe at home: Yes additional social history: Qishkhnnz-BK-Adspuxaerbm Patient work at [employer] History 3 Elective abortions Hx Para 1 Spontaneous abortions 1 Hx # Term Pregnancies Ectopic pregnancies Hx # Pregnancies Multiple births # of living children 1 ROS ROS Narrative Exam Const General: cooperative, healthy appearing, comfortable HENMT Head: normal to inspection Nose: external nose normal Face and sinus: normal facial exam Neck Neck: normal visual inspection, full ROM, no lymphadenopathy Thyroid: thyroid normal Chest Chest palpation & inspection: normal inspection of the chest Resp Effort & Inspection: normal respiratory effort GI Inspection: normal to inspection Palpation: soft, other (gravid uterus) Other: vertex and appropriate size for gestational age Extrem General: pedal edema Review of Systems ROS Unobtainable: due to mental status and other Constitutional Constitutional: Reports systems reviewed and no addt'l complaints, except as documented; Denies as per HPI, change in weight, fatigue, fever(s), malaise, weakness or other Eyes Eyes: Reports systems reviewed and no addt'l complaints, except as documented; Denies as per HPI, change in vision or other ENT HEENT: Reports as per HPI; Denies dizziness, dry mouth, headache(s), loss taste/smell, nasal congestion, nasal discharge, neck pain, sore throat or other Respiratory/Chest Respiratory/Chest: Reports systems reviewed and no addt'l complaints, except as documented Gastrointestinal Gastrointestinal: Reports systems reviewed and no addt'l complaints, except as documented; Denies abdominal pain, nausea or vomiting Musculoskeletal Musculoskeletal: Reports systems reviewed and no addt'l complaints, except as documented; Denies back pain or joint pain Integumentary Integumentary: Reports systems reviewed and no addt'l complaints, except as documented Neurologic Neurologic: Reports systems reviewed and no addt'l complaints, except as documented Psychiatric Psychiatric: Reports systems reviewed and no addt'l complaints, except as documented Endocrine Endocrinology: Reports systems reviewed and no addt'l complaints, except as documented Hematologic/Lymphatic Hematologic/Lymphatic: Reports systems reviewed and no addt'l complaints, except as documented NST FHR Rate Baby A Baseline: 140 Variability:: Moderate Accelerations:: None Decelerations:: None NST Reactive:: Appropriate for gestational age and Non-Reactive Assessment & Plan Assessment/Plan (1) Low lying placenta nos or without hemorrhage, third trimester: Status: Acute Code(s): O44.43 - Low lying placenta NOS or without hemorrhage, third trimester Plan: STO to monitor bleeding, serial labs- cbc fibrinogen ordered. sto, check serial labs (2) Polyhydramnios affecting : Status: Acute Code(s): O40.9XX0 - Polyhydramnios, unspecified trimester, not applicable or unspecified (3) Need for bumbxiieqa-qeefbnu-zncgllwma (Tdap) vaccine: Status: Acute Code(s): Z23 - Encounter for immunization (4) Abnormal glucose affecting : Status: Acute Code(s): O99.810 - Abnormal glucose complicating (5) H/O gestational diabetes in prior , currently : Status: Acute Code(s): O09.299 - Supervision of with other poor reproductive or obstetric history, unspecified trimester; Z86.32 - Personal history of gestational diabetes (6) Supervision of other normal : Status: Acute Code(s): Z34.80 - Encounter for supervision of other normal , unspecified trimester (7) : Status: Acute Code(s): Z34.90 - Encounter for supervision of normal , unspecified, unspecified trimester (8) Abnormal Pap smear of cervix: Status: Acute Code(s): R87.619 - Unspecified abnormal cytological findings in specimens from cervix uteri (9) Vaginal bleeding during : Status: Acute Code(s): O46.90 - Antepartum hemorrhage, unspecified, unspecified trimester (10) Gestational thrombocytopenia: Status: Acute Code(s): O99.119 - Other diseases of the blood and blood-forming organs and certain diso rders involving the immune mechanism complicating , unspecified trimester; D69.6 - Thrombocytopenia, unspecified OBSV E&M: 48505 Initial observation care L3
--- NOTE | 2020-07-01 15:08 | OB.TRI.HP_ITS ---
HPI - General General Date of Admission: 11/08/18 HPI Narrative JOAO RAMIREZ, is a 25 F who presents REPLACED BY [facility] Medical History (Updated 07/01/20 @ 15:[address] Yolanda Gunter MD) ADHD Gestational diabetes Home Medications multivitamin no.47-iron fum 27 mg-folate no.1 1 mg-dha 300 mg capsule 1 cap PO DAILY 01/22/20 [History Last Taken 06/30/20 09:00] Allergy/AdvReac Type Severity Reaction Status Date / Time No Known Allergies Allergy Verified 06/30/20 19:57 Family History Father Diabetes Hypertension Grandmother Hypertension Uncle Asthma Hypertension Heart disease Social History (Updated 06/20/20 @ 15:[address] Kasandra Mccann MD) household members: family number of children: 1 current occupational status: employed Smoking Status: Never smoker second hand exposure: No alcohol intake: never substance use type: does not use caffeine: No what type of physical activity do you participate in: none seatbelt use: always do you feel safe at home: Yes additional social history: Pfgsvwvwh-TO-Obgbczipcer Patient work at [employer] History 3 Elective abortions Hx Para 1 Spontaneous abortions 1 Hx # Term Pregnancies Ectopic pregnancies Hx # Pregnancies Multiple births # of living children 1
[2020-07-01 16:00] VITALS: BP 97/55; PULSE 83; PULSE 85; TEMP 37; O2SAT 99
--- NOTE | 2020-07-01 17:38 | OB.TRI.NOTE ---
HPI - General HPI Narrative JOAO RAMIREZ, is a 25 F 2P1 at 29 weeks presented yesterday with vaginal bleeding, was monitored overnight and had no significant bleeding episodes since admission. serial labs have been drawn and fibrinogen is lower than typically expected for but stable. Platelets and hemoglobin are also stable. Patient denies any regular contractions and admits good movement. [facility] Medical History (Updated 07/01/20 @ 17:[address] Yolanda Gunter MD) ADHD Gestational diabetes Home Medications multivitamin no.47-iron fum 27 mg-folate no.1 1 mg-dha 300 mg capsule 1 cap PO DAILY 01/22/20 [History Last Taken 06/30/20 09:00] Allergy/AdvReac Type Severity Reaction Status Date / Time No Known Allergies Allergy Verified 06/30/20 19:57 Family History Father Diabetes Hypertension Grandmother Hypertension Uncle Asthma Hypertension Heart disease Social History (Updated 06/20/20 @ 15:[address] Kasandra Mccann MD) household members: family number of children: 1 current occupational status: employed Smoking Status: Never smoker second hand exposure: No alcohol intake: never substance use type: does not use caffeine: No what type of physical activity do you participate in: none seatbelt use: always do you feel safe at home: Yes additional social history: Ftdblwonp-JQ-Ydklifrxvax Patient work at [employer] History 3 Elective abortions Hx Para 1 Spontaneous abortions 1 Hx # Term Pregnancies Ectopic pregnancies Hx # Pregnancies Multiple births # of living children 1 ROS ROS Narrative Exam Const General: cooperative, healthy appearing, comfortable HENWI Head: normal to inspection Nose: external nose normal Face and sinus: normal facial exam Neck Neck: normal visual inspection, full ROM, no lymphadenopathy Thyroid: thyroid normal Chest Chest palpation & inspection: normal inspection of the chest Resp Effort & Inspection: normal respiratory effort GI Inspection: normal to inspection Palpation: soft, other (gravid uterus) Other: vertex and appropriate size for gestational age Extrem General: pedal edema Review of Systems ROS Unobtainable: due to mental status and other Constitutional Constitutional: Reports systems reviewed and no addt'l complaints, except as documented; Denies as per HPI, change in weight, fatigue, fever(s), malaise, weakness or other Eyes Eyes: Reports systems reviewed and no addt'l complaints, except as documented; Denies as per HPI, change in vision or other ENT HEENT: Reports as per HPI; Denies dizziness, dry mouth, headache(s), loss taste/smell, nasal congestion, nasal discharge, neck pain, sore throat or other Respiratory/Chest Respiratory/Chest: Reports systems reviewed and no addt'l complaints, except as documented Gastrointestinal Gastrointestinal: Reports systems reviewed and no addt'l complaints, except as documented; Denies abdominal pain, nausea or vomiting Musculoskeletal Musculoskeletal: Reports systems reviewed and no addt'l complaints, except as documented; Denies back pain or joint pain Integumentary Integumentary: Reports systems reviewed and no addt'l complaints, except as documented Neurologic Neurologic: Reports systems reviewed and no addt'l complaints, except as documented Psychiatric Psychiatric: Reports systems reviewed and no addt'l complaints, except as documented Endocrine Endocrinology: Reports systems reviewed and no addt'l complaints, except as documented Hematologic/Lymphatic Hematologic/Lymphatic: Reports systems reviewed and no addt'l complaints, except as documented NST FHR Rate Baby A Baseline: 150 Accelerations:: 15 x 15 Decelerations:: None NST Reactive:: Yes FHR Category:: Category I Uterine Activity:: no regular ctx Assessment & Plan Assessment/Plan (1) Gestational thrombocytopenia: Status: Acute Code(s): O99.119 - Other diseases of the blood and blood-forming organs and certain disorders involving the immune mechanism complicating , unspecified trimester; D69.6 - Thrombocytopenia, unspecified (2) Vaginal bleeding during : Status: Acute Code(s): O46.90 - Antepartum hemorrhage, unspecified, unspecified trimester (3) Low lying placenta nos or without hemorrhage, third trimester: Status: Acute Code(s): O44.43 - Low lying placenta NOS or without hemorrhage, third trimester (4) Polyhydramnios affecting : Status: Acute Code(s): O40.9XX0 - Polyhydramnios, unspecified trimester, not applicable or unspecified (5) Need for hnszpxrice-oblmmsf-qycskpokw (Tdap) vaccine: Status: Acute Code(s): Z23 - Encounter for immunization (6) Abnormal glucose affecting : Status: Acute Code(s): O99.810 - Abnormal glucose complicating (7) Supervision of other normal : Status: Acute Code(s): Z34.80 - Encounter for supervision of other normal , unspecified trimester (8) H/O gestational diabetes in prior , currently : Status: Acute Code(s): O09.299 - Supervision of with other poor reproductive or obstetric history, unspecified trimester; Z86.32 - Personal history of gestational diabetes (9) : Status: Acute Code(s): Z34.90 - Encounter for supervision of normal , unspecified, unspecified trimester (10) Abnormal Pap smear of cervix: Status: Acute Code(s): R87.619 - Unspecified abnormal cytological findings in specimens from cervix uteri OBSV E&M: 52833 Observation care discharge
== END 2020-07-01 16:40 ==
LOC: WPOUT 18:19 → WP 18:20
PROVIDERS: Visit Provider Obstetrics & Gynecology
DX: O99.113 Other diseases of the blood and blood-forming organs and certain disorders involving the immune mechanism complicating pregnancy, third trimester (principal); D69.6 Thrombocytopenia, unspecified; Z3A.30 30 weeks gestation of pregnancy
CPT/HCPCS: 96360; 96361; 36415; 59025; 59050; 76815; 85025; 85027; 85384; 85610; 85730; 86850; 86900; 86901; 99218; J7120; G0378

== ENCOUNTER → 2020-08-15 | Outpatient (CLI) | payer OTHER, SELFPAY ==
[2020-08-15 15:32] VITALS: BMI 36.9
== END | disposition home or self-care (01) ==
LOC: LABSPEC 16:42
PROVIDERS: Visit Provider Obstetrics & Gynecology
DX: Z34.93 Encounter for supervision of normal pregnancy, unspecified, third trimester (principal)
CPT/HCPCS: 87081

== ENCOUNTER 2020-08-22 07:00 | Inpatient (IN) | payer OTHER, SELFPAY ==
[2020-08-15 15:32] VITALS: BMI 36.9
[2020-08-22] VITALS (33 sets, daily range): BP systolic 96–146; BP diastolic 47–78; PULSE 67–108; RESP 16; TEMP 36.5–37.7; O2SAT 16–100; BMI 37.3
[2020-08-22] MEDS: Lactated Ringers 1,000 ML 50 ML IV (07:50)
--- NOTE | 2020-08-22 07:58 | HP.PCM.OB_ITS ---
HPI - General General Date of Admission: 08/22/20 HPI Narrative JOAO RAMIREZ, is a 25 F who presents for induction of labor secondary to placental abruption. She has had a complicated by polyhydramnios, placental abruption, gestational thrombocytopenia, and low-lying placenta. Upon last ultrasound placenta was 2 cm away from the cervical os Maternal Data Information RUBEN Calculator Estimated Delivery Date Method Current WG Current Estimate 09/12/20 LMP (Certain) 37w 0d PFSH PFSH Medical History (Updated 08/22/20 @ 07:[address] Yolanda Gunter MD) ADHD Gestational diabetes Home Medications multivitamin no.47-iron fum 27 mg-folate no.1 1 mg-dha 300 mg capsule 1 cap PO DAILY 01/22/20 [History Last Taken 06/30/20 09:00] methylprednisolone 4 mg tablets in a dose pack See Rx Instructions PO PER PKG DIR #21 tab 08/15/20 [Rx Last Taken Unknown] Allergy/AdvReac Type Severity Reaction Status Date / Time No Known Allergies Allergy Verified 07/25/20 13:10 Family History Father Diabetes Hypertension Grandmother Hypertension Uncle Asthma Hypertension Heart disease Social History household members: family number of children: 1 current occupational status: employed Smoking Status: Never smoker second hand exposure: No alcohol intake: never substance use type: does not use caffeine: No what type of physical activity do you participate in: none seatbelt use: always do you feel safe at home: Yes additional social history: Xqsikbogh-[id number]-[id number] Patient work at [employer] History 3 Elective abortions Hx Para 1 Spontaneous abortions 1 Hx # Term Pregnancies Ectopic pregnancies Hx # Pregnancies Multiple births # of living children 1 Past Pregnancies Del. Date Name GA/Weeks Outcome Route Bth Weight Infant Gen Labor Lgth Anesthesia Del Locatn Provider FOB 11/09/18 Cleopatra 38 live - full term vacuum 7lbs 14oz Femal e pushed for 5 hours epidural [facility] Delivery Date: 11/09/18 Recurrent varuable decelerations; polyhydraminos, GDMA 1 Anais Jiménez Visit Details Expected Delivery Route/Plan by 37w Labor Preferences- labor support person: DANIEL labor intervention preferences: nonspecific pain management options preferred: epidural cut cord/dad catch: [] : [] PP control planned: [] discussed possible routes of delivery and associated risks: [] special requests: [] Plans flu vaccine: declines tdap vaccine: rhogam: na LARC form signed: [] movement and labor precautions reviewed. Problem list reviewed and updated with the most current plan of care details and appropriate orders placed. Relevant counseling for the gestational age provided. Continue routine care and follow up unless otherwise noted in visit notes/problem list details OB Flowsheet Initial Weight: Not Recorded Date -?-?-?-?-?-?-?-?-?-?-?-?- EGA Weight BP Urine Prot -?-?-?-?-?-?-?-?-?-?-?-?- Glucose FHR FuHt Pres Dilation -?-?-?-?-?-?-?-?-?-?-?-?- Effaced St Visit Note 01/28/20 -?-?-?-?-?-?-?-?-?-?-?-?- 7w 3d 173 lb 6 oz 126/80 -?-?-?-?-?-?-?-?-?-?-?-?- 157 -?-?-?-?-?-?-?-?-?-?-?-?- GP - CRL consist ent with LMP. GP - CRL 13.1mm consistent w ith LMP. 02/27/20 -?-?-?-?-?-?-?-?-?-?-?-?- 11w 5d 176 lb 124/82 -?-?-?-?-?-?-?-?-?-?-?-?- 150 -?-?-?-?-?-?-?-?-?-?-?-?- Sm- no vb crampi ng, some vomiting. 03/28/20 -?-?-?-?-?-?-?-?-?-?-?-?- 16w 0d 179 lb 6 oz 132/76 Nega tive -?--?-?-?-?-?-?-?-?-?-?-?- Negative 145 -?-?-?-?-?-?-?-?-?-?-?-?- GP - no cramping or bleeding. Intermittent vomiting. Having a girl! Anatomy scan ordered. 04/25/20 -?-?-?-?-?-?-?-?-?-?-?-?- 20w 0d 188 lb 128/72 Negative -?-?-?-?-?-?-?-?-?-?-?-?- Negative 145 -?-?-?-?-?-?-?-?-?-?-?-?- SM- no vb lof go od fm no regular ctx anatomy us tuesday05/23/20 -?-?-?-?-?-?-?-?-?-?-?-?- 24w 0d 196 lb 122/78 -?-?-?-?-?-?-?-?-?-?-?-?- 145 24 -?-?-?-?-?-?-?-?-?-?-?-?- SM- no vb lof go od fm no regular ctx 06/20/20 -?-?-?-?-?-?-?-?-?-?-?-?- 28w 0d 205 lb 6 oz 130/82 Nega tive -?-?-?-?-?-?-?-?-?-?-?-?- Negative 145 28 -?-?-?-?-?-?-?-?-?-?-?-?- GP -no LOF, VB, DFM, ctx. US to evaluate placental location next week. Discussed timing of delivery if persistent previa. 07/04/20 -?-?-?-?-?-?-?-?-?-?-?-?- 30w 0d 210 lb 130/70 Negative -?-?-?-?-?-?-?-?-?-?-?-?- Negative 145 30 -?-?-?-?-?-?-?-?-?-?-?-?- GP - no LOF, VB, DFM, ctx. Admitted x2 in last week with bleeding and concern for ROM. No further bleeding. Wrote note to boil off worker until 32w ultrasound. 07/18/20 -?-?-?-?-?-?-?-?-?-?-?-?- 32w 0d 213 lb 122/74 -?-?-?-?-?-?-?-?-?-?-?-?- 140 -?-?-?-?-?-?-?-?-?-?-?-?- SM- no vb lof go od fm no regular ctx, discussed plan of care 07/25/20 -?-?-?-?-?-?-?-?-?-?-?-?- 33w 0d 217 lb 2 oz 120/76 Nega tive -?-?-?-?-?-?-?-?-?-?-?-?- Negative -?--?-?-?-?-?-?-?-?-?-?-?- 08/01/20 -?-?-?-?-?-?-?-?-?-?-?-?- 34w 0d 219 lb 118/82 Negative -?-?-?-?-?-?-?-?-?-?-?-?- Negative 130 35 -?-?-?-?-?-?-?-?-?-?-?-?- GP - no LOF, VB, DFM, ctx. Reviewed US with placenta 1.6cm from os - plan . Poly - plan delivery by 39w. 08/07/20 -?-?-?-?-?-?-?-?-?-?-?-?- 34w 6d 221 lb 110/62 Negative -?-?-?-?-?-?-?-?-?-?-?-?- Negative 140 -?-?-?-?-?-?-?-?-?-?-?-?- NST only-reactiv e 08/15/20 -?-?--?-?-?-?-?-?-?-?-?-?- 36w 0d 222 lb 135/86 Negative -?-?-?-?-?-?-?-?-?-?-?-?- Negative -?-?-?-?-?-?-?-?-?-?-?-?- SM- no vb lof go od fm no reuglar ctx discussed plan of care IOL for abruption >37 weeks. schedule IOL 08/22/20 -?-?-?-?-?-?-?-?-?-?-?-?- 37w 0d 224 lb 4 oz -?-?-?-?-?-?-?-?-?-?-?-?- -?-?-?-?-?-?-?-?-?-?-?-?- NST FHR Rate Baby A Baseline: 130 Variability:: Moderate Accelerations:: 15 x 15 Decelerations:: None NST Reactive:: Yes FHR Category:: Category I Uterine Activity:: irregular ROS Constitutional Constitutional: Reports systems reviewed and no addt'l complaints, except as documented Eyes Eyes: Denies change in vision ENT HEENT: Reports systems reviewed and no addt'l complaints, except as documented; Denies headache(s) Cardiovascular Cardiovascular: Reports systems reviewed and no addt'l complaints, except as documented; Denies chest pain or dyspnea Respiratory/Chest Respiratory/Chest: Reports systems reviewed and no addt'l complaints, except as documented Gastrointestinal Gastrointestinal: Reports systems reviewed and no addt'l complaints, except as documented; Denies abdominal pain Genitourinary Genitourinary: Reports systems reviewed and no addt'l complaints, except as documented, contractions Details: present (irregular) and movement Details: present; Denies dysuria or genital lesions Musculoskeletal Musculoskeletal: Reports systems reviewed and no addt'l complaints, except as documented Neurologic Neurologic: Reports systems reviewed and no addt'l complaints, except as documented Endocrine Endocrinology: Reports systems reviewed and no addt'l complaints, except as documented Vital Signs Vital Signs Vital Signs: Weight Weight: 224 lb 4 oz Body Mass Index (BMI) 37.3 Physical Exam Const alert, oriented x3, no apparent distress and healthy appearing HEENT normocephalic and moist oral mucous membranes Head and Scalp: atraumatic Neck full ROM, no lymphadenopathy, supple and thyroid normal General: trachea midline Lymph Lymphatic: no lymphadenopathy noted Chest inspection of chest normal Resp normal respiratory effort Cardio regular rate GI normal to inspection, nondistended, normoactive bowel sounds, soft to palpation and non-tender Inspection: gravid external exam normal Manual OB Exam: estimated gestational size appropriate, presentation cephalic, dilated, effaced and station Extremity normal to inspection General Extremity: Negative for edema Skin no rashes or lesions noted Neuro no focal motor deficits and deep tendon reflexes 2+ bilaterally Motor Exam: strength 5/5 throughout and clonus absent Psych mental status grossly normal Labs Labs Labs: Blood Type A POSITIVE Antibody Screen NEGATIVE Hct 33.8 % (37-47) L Hgb 10.7 g/dL (12.0-15.0) L Pap Smear Negative Obstetrics US Rubella IgG Antibody Reactive (Nonreactive) Hep Bs Antigen Non-Reactive (Nonreactive) Neisseria gonorrhoeae DNA (LEONARD) Negative (Negative) HIV 1&2 Antibody Non-Reactive (Nonreactive) C.trachomatis DNA (PCR) Negative (Negative) Glucose 1 Hr 50 gm 147 mg/dL (70-140) H Rhogam given: No Miscellaneous Test Assessment & Plan (1) Abnormal Pap smear of cervix: COMMENT: Reports abnormal in 2018 - repeat done at [facility] (2) : QUALIFIERS: Weeks of gestation: 32 weeks Qualified Code(s): Z3A.32 - 32 weeks gestation of COMMENT: declines carrier. genetic low risk. declined afp. anatomy reviewed. (3) Supervision of other normal : COMMENT: PRR RUBEN 09/12/20 girl Annabelle PC: Cleopatra AJ (4) Abnormal glucose affecting : COMMENT: 3 hr GTT normal (5) Polyhydramnios affecting : COMMENT: needs weekly NST- growth q4. (6) Low lying placenta nos or without hemorrhage, third trimester: COMMENT: 1.8cm, cleared for (7) Gestational thrombocytopenia: QUALIFIERS: Trimester: third trimester Qualified Code(s): O99.113 - Other diseases of the blood and blood-forming organs and certain disorders involving the immune mechanism complicating , third trimester; D69.6 - Thrombocytopenia, unspecified COMMENT: monitor q 2-4 weeks (8) Placental abruption in third trimester: COMMENT: growth us q 4 weeks. weekly nsts until birtht, deliver at 37 (9) Encounter for induction of labor: PLAN: Patient presents IOL, plan management for with pitocin/AROM. Pain management: Plans epidural. GBS negative. Management of any complications: Chronic placental abruption, MFM recommendation for induction of labor at 37 weeks I have reviewed the [facility] and made any clinically relevant updates.
[2020-08-22] MEDS: 0.9% Normal Saline Single 100 ML IV.SOLN. INTRA-UTER (08:00)
[2020-08-22 08:09] LABS: Absolute Lymphocyte Count 1.86 X10^3/uL (0.83-4.51); Absolute Neutrophil Count 5.8 X10^3/uL (2.0-7.7); Basophil# 0.02 X10^3/uL; Basophil% 0.2 % (0-1); Eosinophil# 0.05 X10^3/uL; Eosinophils% 0.6 % (0-5); Hematocrit 34.3 % (37-47); Hemoglobin 10.7 g/dL (12.0-15.0); Lymphocyte # 1.86 X10^3/ul (0.83-4.51); Lymphocyte % 21.4 % (19-41); Mean Corp Hgb Conc 31.2 g/dL (32-36); Mean Corpuscular Hgb 25.5 pg (27.0-32.0); Mean Corpuscular Volume 81.7 fL (81-99); Mean Platelet Vol. 13.1 fl (6.2-12.0); NRBC Flagged by Analyzer 0 % (0-5); Neutrophil # 5.82 X10^3/uL (2.7-7.7); Neutrophil % 66.9 % (47-70); Platelet Count 114 K/mm3 (150-450); RBC Distribution Width CV 13.8 % (11.6-14.6); RBC Distribution Width SD 40.6 fl (35.1-43.9); White Blood Count 8.7 K/mm3 (4.4-11.0)
[2020-08-22] MEDS: Oxytocin 30 units/NS 500 ml 30 UNITS/500 ML IV.SOLN IV (08:20)
[2020-08-22] MEDS: Acetaminophen 500 MG Tablet PO ×2 (12:43→19:36)
[2020-08-22] MEDS: fentaNYL-bupivacaine (epidural) 100 ML BAG EPIDURAL (14:23)
[2020-08-22] MEDS: Cefazolin 2 GM in 0.9% Normal Saline 100 ML IV (16:04)
[2020-08-22] MEDS: Ondansetron 4 MG/2 ML Vial IV (16:16)
--- NOTE | 2020-08-22 16:36 | RAD_ITS ---
STUDY: X-RAY - PELVIS REASON FOR EXAM: Female, 25 years old. Count for instruments TECHNIQUE: One view of the pelvis was obtained. COMPARISON: None. FINDINGS: There is a non-specific bowel gas pattern. Normal visualized soft tissue structures. Normal bilateral iliac wings, sacroiliac joints and visualized sacrum. Normal visualized bilateral superior and inferior pubic rami. Normal pubic symphysis. Normal ischial tuberosities. Normal visualized right femoral head. Normal right acetabulum. Normal right hip joint. Normal visualized left femoral head. Normal left acetabulum. Normal left hip joint. No plain film evidence of retained foreign body RAD/Pelvis 1 or 2 Views IMPRESSION: Normal x-ray examination of the pelvis. Electronically Signed: Aryan Hays MD at 16:57 EDT , Service support ,
--- NOTE | 2020-08-22 16:38 | EX.PCM.OBRPT ---
Maternal Data Information RUBEN Calculator Estimated Delivery Date Method Current WG Current Estimate 09/12/20 LMP (Certain) 37w 0d Final RUBNE Source: LMP Gestational age: 39 Details Operative Information Date of Procedure: 08/22/20 Pre-Operative Diagnosis: iol chronic abruption Post-Operative Diagnosis: same plus vaginal bleeding with acute abruption Classification: Stat Procedure Type: low transverse director business systems #1: Leland Ramires Type of Anesthesia: Epidural Special Medications: none Antibiotic Given: Ancef 2 grams IV x1 and Zithromax 500 mg/5 mL X1 Drain: Jacques to straight drain Estimated Blood Loss: 600 Fluids Replaced: crystalloid Findings Description of Procedure: Patient was induced at 37 weeks secondary to chronic abruption per [facility] recommendation. On last ultrasound the placenta was measuring 1.8 cm away from the os and therefore was cleared for vaginal delivery. It was discussed with the patient at the start of induction that she was at high risk for but trial of labor was desired and therefore proceeded with. Patient underwent Jacques bulb and Pitocin and at time of rupture of membranes the edge of the placenta was palpated at the cervix os opening upon exam and therefore the decision to proceed with immediate was made. Patient also began having vaginal bleeding and therefore an acute on chronic abruption was suspected and the decision was made to proceed with a stat . The patient was placed in the dorsal supine position with leftward tilt. Patient was prepped and draped in the normal sterile fashion. Pfannenstiel skin incision was made with the scalpel and carried through to the underlying layer of fascia with the scalpel. Fascia was nicked in the midline and the incision extended laterally. The peritoneum was entered digitally. The incision was stretched and a low transverse uterine incision was made with the scalpel. The infant's head was delivered atraumatically followed by the anterior and posterior shoulders without complication the rest of the infant delivered. The cord was clamped and cut and the was handed off to awaiting nurse. The placenta was delivered spontaneously immediately following and was noted to be intact and have a three-vessel cord. The uterus was exteriorized cleared of all clots and debris, and the incision was closed in a double layer closure using #1 Monocryl. The ovaries and fallopian tubes were noted to be within normal limits. The uterus was returned to the maternal abdomen and gutters were cleared of all clots and debris. The peritoneum was closed with 3-0 Monocryl in a running fashion. Gloves were changed prior to fascial closure. Fascia was closed with 0 PDS in a running fashion. Subcutaneous tissue was copiously irrigated and the skin was closed with 3-0 Monocryl in a subcuticular fashion. Mepilex dressing was applied without complication. Patient was taken to recovery in stable condition. It was discussed with the patient that based on the clinical information obtained during this encounter, combined with her history, at this time I would recommend vaginal or cesareans for future deliveries if further pregnancies are desired. Presentation: Positive for Vertex Amniotic Membrane Rupture Type: Artificial Amniotic Fluid Description: Clear Placental Delivery Description: Spontaneous Placenta Disposition: [facility] Cord Vessel Description: 3 Vessels Cord Entanglement: None A Gender: Female (1 minute): 8 (5 minute): 9 Delayed Cord Clamping: No Complications Risks of Surgery Discussed w/Patient: Bleeding, Infection and Injury to surrounding structure(s) including bowel and bladder Complications: none Admit VTE Documentation VTE Present on Admission: No VTE Mechan Device Prophylaxis: SCD's Procedures Urinary/Genital [id number]: [id number] Delivery [facility]
[2020-08-22] MEDS: Methylergonovine 0.2 MG/ML Ampul IM (17:00)
[2020-08-22] MEDS: Oxytocin 30 units/NS 500 ml 30 UNITS/500 ML IV.SOLN 167 UNITS IV (17:00)
[2020-08-22] MEDS: Ketorolac 30 MG/ML Syringe IV (17:55)
[2020-08-22] MEDS: Lactated Ringers 1,000 ML 100 ML IV (19:36)
[2020-08-22] MEDS: Senna/Docusate Sodium 1 Tablet PO (19:37)
[2020-08-23] VITALS (11 sets, daily range): BP systolic 102–125; BP diastolic 49–69; PULSE 73–130; RESP 12–18; TEMP 36.2–39.6; O2SAT 97–100
[2020-08-23] MEDS: Ketorolac 30 MG/ML Syringe IV ×3 (00:08→12:13)
[2020-08-23] MEDS: 0.9% Saline Lock 10 ML Syringe IV ×3 (00:13→12:13)
[2020-08-23] MEDS: Acetaminophen 500 MG Tablet 1000 MG PO ×4 (02:04→21:53)
[2020-08-23 05:55] LABS: Hematocrit 25.4 % (37-47); Hemoglobin 7.9 g/dL (12.0-15.0); Mean Corp Hgb Conc 31.1 g/dL (32-36); Mean Corpuscular Hgb 25.6 pg (27.0-32.0); Mean Corpuscular Volume 82.2 fL (81-99); POSITIVE COUNT YES; Platelet Count 83 K/mm3 (150-450); RBC Distribution Width CV 13.9 % (11.6-14.6); RBC Distribution Width SD 41.5 fl (35.1-43.9); Red Blood Count 3.09 M/mm3 (4.2-5.4); White Blood Count 9.9 K/mm3 (4.4-11.0)
[2020-08-23 05:56] LABS: Scan Indicated on CBC? Y/N YES- FLAGS NOTED
--- NOTE | 2020-08-23 06:33 | PN.OBGYN_ITS ---
Subjective Subjective Patient doing well without complaints. Tolerating PO. Ambulating and voiding without difficulty. feeding well. Denies chest pain, shortness of breath, calf pain/swelling, fevers, chills, lightheadedness. Objective Data Objective Data Vital Signs: Vital Signs Temp Pulse Resp BP Pulse Ox 97.2 F L 81 18 102/54 L 98 08/23/20 03:39 08/23/20 03:39 08/23/20 05:45 08/23/20 03:39 08/23/20 05:45 Oxygen Delivery Method Room Air Weight: 224 lb 4 oz Body Mass Index (BMI) 37.3 Intake & Output: Intake and Output for Last 24 Hours 08/21/20 08/22/20 08/23/20 23:59 23:59 23:59 Intake Total 1904.78 / 1904.78 1400 / 1400 Output Total 800 / 800 800 / 800 Balance 1104.78 / 1104.78 600 / 600 Lab / Micro Data Result Diagrams: 08/23/20 05:40 Labs: Laboratory Results - last 24 hr 08/22/20 08/22/20 08/23/20 07:50 07:50 05:40 WBC 8.7 9.9 RBC 4.20 3.09 L Hgb 10.7 L 7.9 L Hct 34.3 L 25.4 L MCV 81.7 82.2 MCH 25.5 L 25.6 L MCHC 31.2 L 31.1 L RDW Std Deviation 40.6 41.5 RDW Coeff of Kaylee 13.8 13.9 Plt Count 114 L 83 L MPV 13.1 H 13.0 H Immature Gran % (Auto) 2.900 H Neut % (Auto) 66.9 Lymph % (Auto) 21.4 [place] % (Auto) 8.0 Eos % (Auto) 0.6 Baso % (Auto) 0.2 Absolute Neuts (auto) 5.8 Absolute Lymphs (auto) 1.86 Nucleated RBC % 0 Blood Type A POSITIVE Antibody Screen NEGATIVE Radiography Diagnostic Testing: Radiology Impression Pelvis X-Ray 08/22/20 16:36 IMPRESSION: Normal x-ray examination of the pelvis. Electronically Signed: Aryan Hays MD at 16:57 EDT , Service support , ROS Constitutional Constitutional: Reports systems reviewed and no addt'l complaints, except as documented Cardiovascular Cardiovascular: Reports systems reviewed and no addt'l complaints, except as documented Respiratory/Chest Respiratory/Chest: Reports systems reviewed and no addt'l complaints, except as documented Gastrointestinal Gastrointestinal: Reports systems reviewed and no addt'l complaints, except as documented Physical Exam Const alert, oriented x3 and no apparent distress HEENT Head and Scalp: atraumatic Resp normal respiratory effort GI soft to palpation and non-tender Inspection: incision intact, healing well and drainage (none) Bimanual Exam - Vag & Uterus: uterus non-tender Uterus Palpation: uterus fundus firm (below Umbilicus) Assessment & Plan (1) delivery due to maternal disorder: COMMENT: LTCS SM 37 acute on chronic abruption, low lying placenta girl Annabelle gestational thrombocytopenia, polyhydramnios PLAN: s/p LTCS PPD # 1 1. routine post care 2. breast feeding- support given 3. rh positive 4. rubella immune anemia secondary to blood loss- iron supplement upon discharge (2) Acute postoperative anemia due to greater than expected blood loss:
--- NOTE | 2020-08-23 06:38 | PCM.DC ---
Discharge Instructions Diet Discharge Diet: No restrictions Activity Discharge Activity: May Not Drive (for 2 weeks or while taking narcotic pain medications.), May Shower and May Take a Tub Bath (in 7 days) May shower in (days): 0 May resume sexual activity in: 4-6 weeks Weight Bearing Status: Full weight bearing Lifting Restrictions: 20 pounds Dressing / Incision Call your doctor if your incision/area has: Continuous Slow Oozing, Sudden Increased Bleeding, Increased Pain/ Swelling, Increased Redness and Foul Smelling Discharge Call your doctor if you observe: Fever of 101 or Higher and Using more than 1 pad per hour (for 2 hours) Suture Line Care: Avoid Pulling/Pushing and Avoid Pinching/Bending Cleanse incision/area with: Soap & Water and Keep Dressing Clean & Dry Follow Up Care Please Follow Up With: Yolanda Gunter MD When: Call [phone] to make an appointment for an incision check in 1-2 weeks. Test Results: Test results from this visit will be discussed in further detail at your follow-up appointment, if applicable. Discharge Plan Admission Admit Date/Time: 08/22/20 07:00 Primary Reason for Your Visit: delivery Attending Provider: Yolanda Gunter Primary Care Provider: Care Physician,Sugar Primary Discharge Orders/Prescriptions Prescriptions: New naproxen 250 MG tablet 250 - 500 mg PO Q8H PRN PRN (Reason: MILD PAIN) Qty: 30 RF: 1 oxycodone-acetaminophen [Percocet] 5-325 mg tablet 1 tab PO Q6H PRN (Reason: pain) 7 Days Qty: 20 RF: 0 Slow Fe 142 MG tablet extended release 142 mg PO BID Qty: 60 RF: 1 Continued PNV-DHA 27 mg iron-1 mg -300 mg capsule 1 cap PO DAILY RF: 0 Discontinued methylprednisolone [Medrol (Rhett)] 4 mg tablets,dose pack See Rx Instructions PO PER PKG DIR Qty: 21 RF: 0 Referrals / Follow Up: Care Physician,No Primary [Primary Care Provider] -
[2020-08-23] MEDS: Enoxaparin 40 MG/0.4 ML Syringe SC (12:13)
--- NOTE | 2020-08-23 14:34 | NURSING ---
late note 08/22/2020 1900 sheets and pads weighed after c section delivery total ebl of pads and sheets weighed 1060cc
--- NOTE | 2020-08-23 17:41 | NURSING ---
vital signs obtained and updated she gave orders to obtain vs again at 1800 and to update her at that time
[2020-08-23] MEDS: Naproxen 500 MG Tablet PO (18:07)
[2020-08-23] MEDS: Lactated Ringers 1,000 ML 999 ML IV (19:45)
[2020-08-23 19:58] LABS: Absolute Lymphocyte Count 1.14 X10^3/uL (0.83-4.51); Absolute Neutrophil Count 11.8 X10^3/uL (2.0-7.7); Basophil# 0.01 X10^3/uL; Basophil% 0.1 % (0-1); Eosinophil# 0.04 X10^3/uL; Eosinophils% 0.3 % (0-5); Hematocrit 24.5 % (37-47); Hemoglobin 7.8 g/dL (12.0-15.0); Lymphocyte # 1.14 X10^3/ul (0.83-4.51); Lymphocyte % 8.3 % (19-41); Mean Corp Hgb Conc 31.8 g/dL (32-36); Mean Corpuscular Hgb 25.9 pg (27.0-32.0); Mean Corpuscular Volume 81.4 fL (81-99); Mean Platelet Vol. 13.5 fl (6.2-12.0); Monocyte% 4.4 % (0-10); NRBC Flagged by Analyzer 0 % (0-5); Neutrophil # 11.81 X10^3/uL (2.7-7.7); Neutrophil % 85.5 % (47-70); POSITIVE COUNT YES; Platelet Count 86 K/mm3 (150-450); RBC Distribution Width CV 14.3 % (11.6-14.6); RBC Distribution Width SD 42.5 fl (35.1-43.9); Red Blood Count 3.01 M/mm3 (4.2-5.4); White Blood Count 13.8 K/mm3 (4.4-11.0)
[2020-08-23] MEDS: Lactated Ringers 1,000 ML 75 ML IV (21:36)
[2020-08-24 00:45] VITALS: BP 105/58; PULSE 90; RESP 18; TEMP 36.7; O2SAT 98
[2020-08-24] MEDS: Naproxen 500 MG Tablet PO ×2 (02:15→10:31)
[2020-08-24] MEDS: Acetaminophen 500 MG Tablet 1000 MG PO ×2 (04:32→10:31)
--- NOTE | 2020-08-24 07:13 | PCM.PN.OB ---
Subjective Subjective Some hypotension and elevated temps overnight that resolved within an hour and with IV fluids, incentive spirometry. Repeat CBC stable. Objective Data Objective Data Vital Signs: Vital Signs Temp Pulse Resp BP Pulse Ox 98.0 F 90 18 105/58 L 98 08/24/20 00:45 08/24/20 00:45 08/24/20 00:45 08/24/20 00:45 08/24/20 00:45 Oxygen Delivery Method Room Air Weight: 224 lb 4 oz Body Mass Index (BMI) 37.3 Intake & Output: Intake and Output for Last 24 Hours 08/22/20 08/23/20 08/24/20 23:59 23:59 23:59 Intake Total 1904.78 / 1904.78 2400 / 2400 Output Total 800 / 800 800 / 800 Balance 1104.78 / 1104.78 1600 / 1600 Lab / Micro Data Result Diagrams: 08/23/20 19:45 Labs: Laboratory Results - last 24 hr 08/23/20 19:45 WBC 13.8 H RBC 3.01 L Hgb 7.8 L Hct 24.5 L MCV 81.4 MCH 25.9 L MCHC 31.8 L RDW Std Deviation 42.5 RDW Coeff of Kaylee 14.3 Plt Count 86 L MPV 13.5 H Immature Gran % (Auto) 1.400 H Neut % (Auto) 85.5 H Lymph % (Auto) 8.3 L [place] % (Auto) 4.4 Eos % (Auto) 0.3 Baso % (Auto) 0.1 Absolute Neuts (auto) 11.8 H Absolute Lymphs (auto) 1.14 Nucleated RBC % 0 ROS Constitutional Constitutional: Reports systems reviewed and no addt'l complaints, except as documented Cardiovascular Cardiovascular: Reports systems reviewed and no addt'l complaints, except as documented Respiratory/Chest Respiratory/Chest: Reports systems reviewed and no addt'l complaints, except as documented Gastrointestinal Gastrointestinal: Reports systems reviewed and no addt'l complaints, except as documented Physical Exam Const alert, oriented x3 and no apparent distress HEENT Head and Scalp: atraumatic Resp normal respiratory effort GI soft to palpation and non-tender Inspection: incision intact, healing well and drainage (none) Bimanual Exam - Vag & Uterus: uterus non-tender Uterus Palpation: uterus fundus firm (below Umbilicus) Assessment & Plan (1) Acute postoperative anemia due to greater than expected blood loss: (2) delivery due to maternal disorder: COMMENT: LTCS SM 37 acute on chronic abruption, low lying placenta girl Annabelle gestational thrombocytopenia, polyhydramnios PLAN: Additional IV fluid bolus this morning and continue to watch vital signs. Afebrile but borderline low blood pressures. If stable will plan for discharge later on today
[2020-08-24 07:27] VITALS: BP 102/51; PULSE 86; RESP 16; TEMP 36.5; O2SAT 98
[2020-08-24] MEDS: Lactated Ringers 1,000 ML 999 ML IV (07:37)
[2020-08-24] MEDS: 0.9% Saline Lock 10 ML Syringe IV (08:58)
[2020-08-24 09:02] VITALS: BP 127/53; PULSE 99; RESP 16; TEMP 36.4
--- NOTE | 2020-08-24 09:08 | NURSING ---
Patient denies headache, blurred vision, and epigastric pain.
[2020-08-24] MEDS: Prenatal Vits Tablet 1 TABLET PO (10:31)
[2020-08-24] MEDS: Senna/Docusate Sodium 1 Tablet PO (10:31)
[2020-08-24] MEDS: Enoxaparin 40 MG/0.4 ML Syringe SC (10:32)
--- NOTE | 2020-08-24 10:38 | NURSING ---
Call placed to Dr. Gunter to confirm that patient should still get scheduled Lovenox with patient's platelet count. Per Dr. Gunter, still give patient the scheduled Lovenox.
[2020-08-24 10:56] VITALS: BP 117/65; PULSE 104; RESP 18; TEMP 36.7
== END 2020-08-24 11:50 | disposition home or self-care (01) | DRG 787 ==
PROVIDERS: Admitting Provider Obstetrics & Gynecology; Referring Provider Obstetrics & Gynecology; Visit Provider Obstetrics & Gynecology
DX: O45.93 Premature separation of placenta, unspecified, third trimester (principal); D62 Acute posthemorrhagic anemia; O44.43 Low lying placenta NOS or without hemorrhage, third trimester; O40.3XX0 Polyhydramnios, third trimester, not applicable or unspecified; D69.6 Thrombocytopenia, unspecified; Z3A.37 37 weeks gestation of pregnancy; Z37.0 Single live birth; Z82.49 Family history of ischemic heart disease and other diseases of the circulatory system; Z82.5 Family history of asthma and other chronic lower respiratory diseases; Z83.3 Family history of diabetes mellitus
CPT/HCPCS: 59025; 59050; 72170; 85025; 85027; 86850; 86900; 86901; 99218; 99251; J7120; A4216; G0378; G0463; J2405

== ENCOUNTER → 2020-09-30 15:36 | Outpatient (CLI) | payer OTHER, SELFPAY ==
[2020-09-30 15:06] VITALS: BMI 37.3
[2020-09-30 15:58] LABS: Absolute Lymphocyte Count 2.09 X10^3/uL (0.83-4.51); Basophil# 0.02 X10^3/uL; Basophil% 0.4 % (0-1); Eosinophil# 0.06 X10^3/uL; Eosinophils% 1.1 % (0-5); Hematocrit 38.8 % (37-47); Hemoglobin 12.5 g/dL (12.0-15.0); Lymphocyte # 2.09 X10^3/ul (0.83-4.51); Lymphocyte % 37.6 % (19-41); Mean Corp Hgb Conc 32.2 g/dL (32-36); Mean Corpuscular Hgb 26.3 pg (27.0-32.0); Mean Corpuscular Volume 81.5 fL (81-99); Mean Platelet Vol. 12.2 fl (6.2-12.0); Monocyte# 0.36 X10^3/uL; Monocyte% 6.5 % (0-10); NRBC Flagged by Analyzer 0 % (0-5); Neutrophil # 3.02 X10^3/uL (2.7-7.7); Neutrophil % 54.2 % (47-70); Platelet Count 167 K/mm3 (150-450); RBC Distribution Width CV 14.6 % (11.6-14.6); RBC Distribution Width SD 43.2 fl (35.1-43.9); Red Blood Count 4.76 M/mm3 (4.2-5.4); White Blood Count 5.6 K/mm3 (4.4-11.0)
== END ==
PROVIDERS: Referring Provider Obstetrics & Gynecology; Visit Provider Obstetrics & Gynecology
DX: D62 Acute posthemorrhagic anemia (principal)
CPT/HCPCS: 36415; 85025

== ENCOUNTER → 2023-02-07 | Outpatient (CLI) | payer OTHER, SELFPAY ==
[2023-02-11 22:24] LABS: HPV Reflexed? NOT INDICATED
== END | disposition home or self-care (01) ==
LOC: LABSPEC 14:48
PROVIDERS: Referring Provider Obstetrics & Gynecology; Visit Provider Obstetrics & Gynecology
DX: Z12.4 Encounter for screening for malignant neoplasm of cervix (principal)
CPT/HCPCS: 88175; G0145

== ENCOUNTER → 2023-02-14 | Outpatient (CLI) | payer OTHER, SELFPAY ==
--- NOTE | 2023-02-14 09:30 | BI_ITS ---
MAMMOGRAPHY - BILATERAL DIAGNOSTIC REASON FOR EXAM: Female, 27 years old. Palpable lump in the retroareolar region of the right breast. PERTINENT HISTORY: Grandmother with breast cancer. TECHNIQUE: Digital bilateral breast kat (3D mammographic acquisition) in the CC and MLO projections. 2-D mediolateral oblique (MLO) and craniocaudad (CC) views of both breasts were obtained. CAD: Full Field Digital Mammography with Computer Added Detection was performed. COMPARISON: None. Baseline examination. FINDINGS: Breast Composition: The breasts are extremely dense, which lowers the sensitivity of mammography. There are no dominant masses or suspicious calcifications. No other significant abnormalities are identified. BI/DIAG MAMM W/CAD, BILAT IMPRESSION: Negative diagnostic mammogram. With the patient''s history of a palpable lump in the retroareolar region of the right breast, correlation with ultrasound is recommended. ASSESSMENT CATEGORY: BIRADS Category 0: Incomplete. Need additional imaging evaluation. A letter regarding these results will be sent to the patient by the facility within 30 days. Approximately 10% of breast cancers are not detected by mammography. A normal mammogram should not delay biopsy of a clinically suspicious abnormality. Electronically Signed: Osiel Gaspar MD at 10:53 EST ,
--- NOTE | 2023-02-14 09:30 | US_ITS ---
STUDY: ULTRASOUND BREAST - RIGHT REASON FOR EXAM: Female, 27 years old. Palpable lump in the right breast. TECHNIQUE: Axial and longitudinal images of the RIGHT breast were performed with a high resolution ultrasound transducer. # OF IMAGES: 26 COMPARISON: Comparison is made with prior mammogram done earlier today. FINDINGS: RIGHT Breast: Large amount of fibroglandular tissue. Retroareolar ductal dilatation. US/Breast Limited Unilateral IMPRESSION: Retroareolar ductal dilatation ASSESSMENT CATEGORY: BIRADS Category 2: Benign. A letter regarding these results will be sent to the patient by the facility within 30 days. Electronically Signed: Osiel Gaspar MD at 11:12 EST ,
== END | disposition home or self-care (01) ==
LOC: OPBI 09:29
PROVIDERS: Referring Provider Obstetrics & Gynecology; Visit Provider Obstetrics & Gynecology
DX: N63.10 Unspecified lump in the right breast, unspecified quadrant (principal)
CPT/HCPCS: 76642; 77062; 77066; G0279

== ENCOUNTER → 2023-02-14 | Outpatient (CLI) | payer OTHER, SELFPAY ==
[2023-02-14 12:13] LABS: ALB/GLOB Ratio 1.2 RATIO (0.9-2.4); AST(SGOT) 29 U/L (15-37); Alanine Aminotransfer ALT/SGPT 36 U/L (13-56); Alkaline Phosphatase 51 U/L (45-117); Anion Gap 5 (5-15); BUN 10 mg/dL (7-18); BUN/Creat Ratio 12.9 RATIO (10-20); Calcium,Total 8.5 mg/dL (8.5-10.1); Chloride 109 mmol/L (98-107); Creatinine, Serum 0.78 mg/dL (0.55-1.02); EST Glomerular Filtration Rate 94 mL/min (>60); Est Glom Filt Rate - Afr Amer 113 mL/min (>60); Globulin 3.3 g/dL (2.2-4.2); Glucose 97 mg/dL (74-106); Potassium 3.8 mmol/L (3.5-5.1); Protein, Total 7.3 g/dL (6.4-8.2); Sodium Level 141 mmol/L (136-145)
== END | disposition home or self-care (01) ==
LOC: LAB 10:54
PROVIDERS: Referring Provider Obstetrics & Gynecology; Visit Provider Obstetrics & Gynecology
DX: E66.9 Obesity, unspecified (principal)
CPT/HCPCS: 36415; 80053; 83036; 84443

== ENCOUNTER → 2023-12-15 | Outpatient (CLI) | payer OTHER, SELFPAY ==
[2023-12-15 12:24] LABS: Absolute Lymphocyte Count 1.75 X10^3/uL (0.83-4.51); Absolute Neutrophil Count 4.7 X10^3/uL (2.0-7.7); Basophil# 0.01 X10^3/uL; Basophil% 0.1 % (0-1); Eosinophil# 0.03 X10^3/uL; Eosinophils% 0.4 % (0-5); Hemoglobin 12.5 g/dL (12.0-15.0); Lymphocyte # 1.75 X10^3/ul (0.83-4.51); Lymphocyte % 25.3 % (19-41); Mean Corp Hgb Conc 32.9 g/dL (32-36); Mean Corpuscular Volume 88.2 fL (81-99); Mean Platelet Vol. 12.3 fl (6.2-12.0); Monocyte# 0.41 X10^3/uL; Monocyte% 5.9 % (0-10); NRBC Flagged by Analyzer 0 % (0-5); Neutrophil # 4.69 X10^3/uL (2.7-7.7); Neutrophil % 67.9 % (47-70); Platelet Count 144 K/mm3 (150-450); RBC Distribution Width CV 12.3 % (11.6-14.6); Red Blood Count 4.31 M/mm3 (4.2-5.4); White Blood Count 6.9 K/mm3 (4.4-11.0)
[2023-12-15 13:29] LABS: HIV - WCH Non-Reactive (Nonreactive); Hepatitis B Surface Antigen Non-Reactive (Nonreactive); Hepatitis C Antibody Non-Reactive (Nonreactive); Rubella IgG Reactive (Nonreactive); Syphilis Antibodies Non-reactive
[2023-12-20 00:07] LABS: Chlamydia By Nucleic Acid AMP Negative (Negative); Gonococcus By Nucleic Acid AMP Negative (Negative)
== END | disposition home or self-care (01) ==
LOC: WOBLAB 11:59
PROVIDERS: Referring Provider Advanced Practice Midwife; Visit Provider Advanced Practice Midwife
DX: O99.210 Obesity complicating pregnancy, unspecified trimester (principal); O09.299 Supervision of pregnancy with other poor reproductive or obstetric history, unspecified trimester; Z86.32 Personal history of gestational diabetes; Z3A.00 Weeks of gestation of pregnancy not specified
CPT/HCPCS: 36415; 83036; 85025; 86703; 86762; 86780; 86803; 86850; 86900; 86901; 87340; 87491; 87591

== ENCOUNTER → 2024-01-12 | Outpatient (CLI) | payer OTHER, SELFPAY | END | disposition home or self-care (01) | LOC: LABSPEC 10:20 | PROVIDERS: Referring Provider Advanced Practice Midwife; Visit Provider Advanced Practice Midwife | DX: O99.210 Obesity complicating pregnancy, unspecified trimester (principal); O09.299 Supervision of pregnancy with other poor reproductive or obstetric history, unspecified trimester; Z86.32 Personal history of gestational diabetes; Z3A.00 Weeks of gestation of pregnancy not specified | CPT/HCPCS: 87086; 87088 ==

== ENCOUNTER → 2024-03-26 | Outpatient (CLI) | payer OTHER, SELFPAY | END | disposition home or self-care (01) | PROVIDERS: Referring Provider Obstetrics & Gynecology; Visit Provider Obstetrics & Gynecology | DX: O86.01 Infection of obstetric surgical wound, superficial incisional site (principal) | CPT/HCPCS: 87070; 87075; 87077; 87186; 87205 ==

== ENCOUNTER → 2024-04-04 | Outpatient (CLI) | payer OTHER, SELFPAY ==
[2024-04-04 07:35] LABS: Absolute Lymphocyte Count 1.43 X10^3/uL (0.83-4.51); Absolute Neutrophil Count 5.3 X10^3/uL (2.0-7.7); Basophil# 0.02 X10^3/uL; Basophil% 0.3 % (0-1); Eosinophil# 0.03 X10^3/uL; Eosinophils% 0.4 % (0-5); Hematocrit 36.1 % (37-47); Hemoglobin 12.4 g/dL (12.0-15.0); Lymphocyte # 1.43 X10^3/ul (0.83-4.51); Lymphocyte % 19.9 % (19-41); Mean Corp Hgb Conc 34.3 g/dL (32-36); Mean Corpuscular Hgb 28.7 pg (27.0-32.0); Mean Corpuscular Volume 83.6 fL (81-99); Mean Platelet Vol. 11.6 fl (6.2-12.0); Monocyte# 0.32 X10^3/uL; Monocyte% 4.5 % (0-10); NRBC Flagged by Analyzer 0 % (0-5); Neutrophil % 73.9 % (47-70); Platelet Count 147 K/mm3 (150-450); RBC Distribution Width CV 12.8 % (11.6-14.6); RBC Distribution Width SD 38.5 fl (35.1-43.9); Red Blood Count 4.32 M/mm3 (4.2-5.4); White Blood Count 7.2 K/mm3 (4.4-11.0)
[2024-04-04 08:03] LABS: Glucose GTT- Fasting 91 mg/dL (74-106)
[2024-04-04 08:22] LABS: HIV - WCH Non-Reactive (Nonreactive); Syphilis Antibodies Non-reactive
[2024-04-04 09:01] LABS: Glucose GTT- 1 Hour 156 mg/dL (120-170)
[2024-04-04 09:01] LABS: Glucose GTT-30 minutes 155 mg/dL (110-170)
[2024-04-04 10:50] LABS: Glucose GTT- 3 Hour 65 mg/dL (74-106)
[2024-04-04 11:00] LABS: Glucose GTT- 2 Hour 55 mg/dL (70-120)
== END | disposition home or self-care (01) ==
LOC: LAB 07:06
PROVIDERS: Referring Provider Advanced Practice Midwife; Visit Provider Advanced Practice Midwife
DX: O09.90 Supervision of high risk pregnancy, unspecified, unspecified trimester (principal); Z3A.00 Weeks of gestation of pregnancy not specified
CPT/HCPCS: 36415; 82951; 82952; 85025; 86703; 86780

== ENCOUNTER 2024-04-05 19:20 | Outpatient (CLI) | payer OTHER, SELFPAY ==
[2024-04-05 19:31] VITALS: BP 125/67; PULSE 73; PULSE 78; RESP 16; TEMP 36.6; O2SAT 98
[2024-04-05 19:59] VITALS: BMI 34.9
[2024-04-05 21:05] LABS: Absolute Lymphocyte Count 1.68 X10^3/uL (0.83-4.51); Absolute Neutrophil Count 5.9 X10^3/uL (2.0-7.7); Basophil# 0.03 X10^3/uL; Basophil% 0.4 % (0-1); Eosinophil# 0.03 X10^3/uL; Eosinophils% 0.4 % (0-5); Hematocrit 33.8 % (37-47); Hemoglobin 11.4 g/dL (12.0-15.0); Lymphocyte # 1.68 X10^3/ul (0.83-4.51); Lymphocyte % 20.7 % (19-41); Mean Corp Hgb Conc 33.7 g/dL (32-36); Mean Corpuscular Hgb 28.6 pg (27.0-32.0); Mean Corpuscular Volume 84.7 fL (81-99); Mean Platelet Vol. 12.1 fl (6.2-12.0); Monocyte# 0.46 X10^3/uL; Monocyte% 5.7 % (0-10); NRBC Flagged by Analyzer 0 % (0-5); Neutrophil # 5.85 X10^3/uL (2.7-7.7); Neutrophil % 71.9 % (47-70); Platelet Count 152 K/mm3 (150-450); RBC Distribution Width CV 12.8 % (11.6-14.6); Red Blood Count 3.99 M/mm3 (4.2-5.4); White Blood Count 8.1 K/mm3 (4.4-11.0)
[2024-04-05 22:18] LABS: Fibrinogen 353 mg/dl (203-444)
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
== END 2024-04-05 23:50 | disposition home or self-care (01) ==
LOC: WPOUT 19:25 → WP 19:25
PROVIDERS: Referring Provider Obstetrics & Gynecology; Visit Provider Obstetrics & Gynecology
DX: Z04.1 Encounter for examination and observation following transport accident (principal); V43.54XA Car driver injured in collision with van in traffic accident, initial encounter; Z3A.26 26 weeks gestation of pregnancy
CPT/HCPCS: 36415; 59025; 59050; 85025; 85384; 99221; G0378

== ENCOUNTER → 2024-06-12 | Outpatient (CLI) | payer OTHER, SELFPAY ==
--- NOTE | 2024-06-12 11:34 | US_ITS ---
PROCEDURE: OB LIMITED WITH BIOMETRICS (USOBGROWTH), 06/12/2024 REASON FOR EXAM: LARGE FOR GESTATIONAL AGE. Reportedly 35 weeks 5 days with RUBEN 07/12/2024 by previously established dates. TECHNIQUE: Grayscale and color/spectral doppler transabdominal pelvic ultrasound was performed with attention to the uterus and associated gestation. COMPARISON: None FINDINGS: Gravid uterus with a single fetus. Cardiac activity: Present, regular, 123 bpm. position: Cephalic. Amniotic Fluid Index: 9.8 (normal 5-25), deepest vertical pocket 4.1 (normal 2-8). Placenta: Posterior fundal, without visualized or definite previa. Scattered calcifications. biometry: Biparietal diameter: 9.2 cm, corresponding to 37 weeks 3 days. Head circumference: 33.5 cm, corresponding to 38 weeks 2 days. Occipitofrontal diameter: 11.6 cm. Corresponding gestational age not available. Abdominal circumference: 32.6 cm, corresponding to 36 weeks 4 days. Femur length: 6.9 cm, corresponding to 35 weeks 2 days. Composite gestational age: 37 weeks 0 days Estimated Weight (EFW): 2,945 g +/- 442 g, 70th percentile. Estimated delivery date (RUBEN): 07/03/2024 by today's measurements. Maternal anatomy: Cervix: 5.3. Right ovary: Nonvisualized due to the gravid uterus. Left ovary: Nonvisualized due to the gravid uterus. Other: No significant visualized pelvic free fluid. US/OB Limited With Biometrics IMPRESSION: 1. Single living intrauterine at 37 weeks 0 days with RUBEN 07/03/2024 by today's measurements. Correlate with clinical factors including previously established dates. 2. Estimated weight 2,945 g +/- 442 g, 70th percentile based on provided previously established dates. biometry as above. 3. Additional description as above. Reading Location: [id number]
== END | disposition home or self-care (01) ==
LOC: US 11:32
PROVIDERS: Referring Provider Obstetrics & Gynecology; Visit Provider Obstetrics & Gynecology
DX: O99.210 Obesity complicating pregnancy, unspecified trimester (principal); O09.299 Supervision of pregnancy with other poor reproductive or obstetric history, unspecified trimester; Z86.32 Personal history of gestational diabetes; Z3A.00 Weeks of gestation of pregnancy not specified
CPT/HCPCS: 76816

== ENCOUNTER → 2024-06-14 | Outpatient (CLI) | payer OTHER, SELFPAY | END | disposition home or self-care (01) | LOC: LABSPEC 12:02 | PROVIDERS: Referring Provider Obstetrics & Gynecology; Visit Provider Obstetrics & Gynecology | DX: O09.90 Supervision of high risk pregnancy, unspecified, unspecified trimester (principal); Z3A.00 Weeks of gestation of pregnancy not specified | CPT/HCPCS: 87081 ==

== ENCOUNTER 2024-07-13 09:57 | Inpatient (IN) | payer OTHER, SELFPAY ==
[2024-07-13] VITALS (16 sets, daily range): BP systolic 95–115; BP diastolic 65–87; PULSE 46–98; RESP 13–20; TEMP 35.8–36.7; O2SAT 97–100; BMI 39.6
[2024-07-13] MEDS: Lactated Ringers 1,000 ML 999 ML IV (10:30)
[2024-07-13 11:01] LABS: Absolute Neutrophil Count 5.7 X10^3/uL (2.0-7.7); Basophil# 0.02 X10^3/uL; Basophil% 0.3 % (0-1); Eosinophil# 0.09 X10^3/uL; Eosinophils% 1.2 % (0-5); Hematocrit 35.6 % (37-47); Hemoglobin 11.7 g/dL (12.0-15.0); Lymphocyte % 19.4 % (19-41); Mean Corp Hgb Conc 32.9 g/dL (32-36); Mean Corpuscular Hgb 26.9 pg (27.0-32.0); Mean Corpuscular Volume 81.8 fL (81-99); Mean Platelet Vol. 13.3 fl (6.2-12.0); Monocyte# 0.39 X10^3/uL; NRBC Flagged by Analyzer 0 % (0-5); Neutrophil # 5.66 X10^3/uL (2.7-7.7); Neutrophil % 72.9 % (47-70); Platelet Count 119 K/mm3 (150-450); RBC Distribution Width SD 40.3 fl (35.1-43.9); Red Blood Count 4.35 M/mm3 (4.2-5.4); White Blood Count 7.8 K/mm3 (4.4-11.0)
[2024-07-13] MEDS: Acetaminophen 500 MG Tablet 1000 MG PO ×3 (11:03→23:11)
[2024-07-13] MEDS: Lactated Ringers 1,000 ML 150 ML IV (11:30)
[2024-07-13] MEDS: Sodium Citrate/Citric Acid 30 ML UDC PO (12:03)
[2024-07-13] MEDS: Cefazolin 2 GM in 0.9% Normal Saline (100mL Bag) 100 ML IV (12:22)
[2024-07-13 12:24] LABS: Syphilis Antibodies Nonreactive (Nonreactive)
[2024-07-13] MEDS: Oxytocin 15 Units/NS 250ml 15 UNITS/250 ML IV.SOLN 83 UNITS IV (13:25)
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
--- NOTE | 2024-07-13 15:16 | OP.PCM_ITS ---
Assessment & Plan (1) Large for gestational age fetus: COMMENT: normal growth at 36 weeks (2) delivery delivered: COMMENT: OZ RLTCS kae banks Maternal Data Information RUBEN Calculator Estimated Delivery Date Method Current WG Current Estimate 07/12/24 LMP (Certain) 40w 1d Other Estimates 07/10/24 Ultrasound #1 40w 3d Final RUBEN Source: LMP Operative Report (OB) Details Procedure Type: low transverse Date of Procedure: 07/13/24 Procedure Start Time: 12:30 Procedure Stop Time: 13:12 Pre-Operative Diagnosis: Other Other Pre-Operative diagnosis: see a/p comments Post-Operative Diagnosis: Same as Pre-operative diagnosis Classification: Scheduled Type of Anesthesia: Spinal Special Medications: none Antibiotic Given: Ancef 2 grams IV x1 Drain: Jacques to straight drain Estimated Blood Loss: 600 Fluids Replaced: crystalloid Findings Description of surgery: Spinal anesthesia was placed without difficulty. Jacques catheter was placed. The patient was placed in the dorsal supine position with leftward tilt. Patient was prepped and draped in the normal sterile fashion. Pfannenstiel skin incision was made with the scalpel excising the old scar and carried through to the underlying layer of fascia with the scalpel. Fascia was nicked in the midline and the incision extended laterally. The rectus bellies were dissected off superiorly and inferiorly with out complication both sharply and bluntly. The peritoneum was entered digitally. The incision was stretched and a low transverse uterine incision was made with the scalpel. The 's head was delivered atraumatically followed by the anterior and posterior shoulders without complication the rest of the delivered. The cord was clamped and cut and the was handed off to awaiting nurse. The placenta was delivered spontaneously immediately following and was noted to be intact and have a three- vessel cord. The uterus was exteriorized cleared of all clots and debris, and the incision was closed in a single layer closure using #1 Monocryl. hemoblast used for hemostasis. The ovaries and fallopian tubes were noted to be within normal limits. The uterus was returned to the maternal abdomen and gutters were cleared of all clots and debris. The peritoneum was closed with 3-0 Monocryl in a running fashion. Gloves were changed prior to fascial closure. Fascia was closed with 0 PDS in a running fashion. Subcutaneous tissue was copiously irrigated and the skin was closed with 3-0 Monocryl in a subcuticular fashion. Mepilex dressing was applied without complication. Patient was taken to recovery in stable condition. It was discussed with the patient that based on the clinical information obtained during this encounter, combined with her history, at this time I would recommend cesareans for future deliveries if further pregnancies are desired. Surgical findings: fetus vertex nl tubes ovaries Presentation: Vertex Amniotic Membrane Rupture Type: Artificial Amniotic Fluid Description: Clear Specimen collected: Yes Description of specimen(s) removed: placenta and baby Cord Vessel Description: 3 Vessels Delayed Cord Clamping: Yes Compensation/Benefits Specialist tensioning machine operator: Yes Butcher Helper: Tory Abdul Tasks completed by assistant hvac mechanic: Opening & closing, Retracting and Other (assisting in delivery of the infant) Additional showroom sales assistant?: No Complications Complications: No Admit VTE Documentation VTE Present on Admission: No VTE Mechan Device Prophylaxis: SCD's Procedures Urinary/Genital 52xxx-59xxx: 26017 Delivery [facility]
--- NOTE | 2024-07-13 15:16 | PCM.HP.BLA ---
History and Physical Date of Admission: 07/13/24 MR#: [id number] Acct: [id number] Name: JOAO LOU Rep #: [id number] : 1995 Provider: Dr. Yolanda Gunter MD Age/Sex: 29/F Location: [facility] [place] Status: Signed Intake Vital Signs 06/06/2508:54 07/05/2512:56 07/11/2514:04 Height 5 ft 5 in 5 ft 5 in 5 ft 5 in Weight: 237 lb 8 oz BMI 39.5 BP 136/85 H Intake Visit Reasons: 40wk ob *csection 07/13 Relief Mate Required: No Is patient in pain?: No Allergies No Known Allergies Allergy (Verified 07/11/24 15:05) Medications ?Medication ?Instructions ?Recorded ?Confirmed ?Type multivit-min no.71-iron fum 28 1 cap PO DAILY preg 12/06/23 07/11/24 History mg-folate no.1 1 mg-dha 300 mg capsule (PNV-Casar) Last Menstrual Period: 10/06/23 Zika: Zika virus screening: Negative : No PFSH PFSH Medical History Obesity (BMI 30-39.9) Other obesity Obesity Lump of right breast Well woman exam Acute postoperative anemia due to greater than expected blood loss delivery due to maternal disorder Gestational diabetes ADHD Surgical History delivery delivered Family History Father Diabetes HypertensionGrandmother Hypertension Breast cancerUncle Asthma Hypertension Heart disease Social History adopted: No household members: spouse and children number of children: 2 current occupational status: employed 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[employer] ([employer]: [place]) current occupational exposures/hazards: No pets and animals: Yes pets and animals: dog(s) history of recent travel: No sexually active: Yes Smoking Status: Never smoker second hand exposure: No alcohol intake: current alcohol intake frequency: a few times a month details: Not while substance use type: does not use well-balanced diet: daily or most days caffeine: Yes Type: coffee Number of servings: 1 eating out: 1-3 times/week during the past year weight has: increased > 10 lbs what type of physical activity do you participate in: walking frequency: 3-4 times per week duration: 15-30 minutes/day garret/uatsdin: Orthodox seatbelt use: always do you feel safe at home: Yes additional social history: [id number]-VL-Tbornydprfk Patient work at [employer] ([employer]: [place]) History 4 Elective abortions Hx Para 2 Spontaneous abortions 1 Hx # Term Pregnancies Ectopic pregnancies Hx # Pregnancies Multiple births # of living children 2 Past Pregnancies Del. Date Name GA/Weeks Outcome Route Bth Weight Gen Labor Lgth Anesthesia Del Locatn Provider FOB Unknown [id number] Annabelle 37 live - full term 7# 12oz Female spinal [facility] 11/09/18 Cleopatra 38 live - full term vacuum 7lbs 14oz Female pushed for 5 hours epidural [facility] Delivery Date: Last Updated by: Alisa Dickey IOL, placental abruption, emergency c section Delivery Date: 11/09/18 Last Updated by: Anais Jiménez Recurrent varuable decelerations; polyhydraminos, GDMA 1 HPI 40wk ob *csection 07/13 Details: JOAO RAMIREZ is a 29 year old who presents for routine OB visit. OB Visit RUBEN Calculator Estimated Delivery Date Method Current WG Current Estimate 07/12/24 LMP (Certain) 39w 6d Other Estimates 07/10/24 Ultrasound #1 40w 1d Expected Delivery Route/Plan tolac unless 40 weeks then plan RLTCS with Labor Preferences- CB/BF classes: [] labor support person: [] labor intervention preferences: [] pain management options preferred: [] cut cord/dad catch: [] : [] PP control planned: [] discussed possible routes of delivery and associated risks: [] special requests: [] Specific Issue/Plans Covid status: [] Flu vaccine: [] Tdap vaccine: given Rhogam: na LARC form signed: declined movement and labor precautions reviewed. Problem list reviewed and updated with the most current plan of care details and appropriate orders placed. Relevant counseling for the gestational age provided. Continue routine care and follow up unless otherwise noted in visit notes/problem list details Initial Weight: 189 lb Date <del>?</del> EGA Weight BP Urine Prot <del>?</del> Glucose FHR FuHt Pres Dilation <del>?</del> Effaced St Visit Note 12/15/23<del>?</del> 10w 0d 189 lb 8 oz(+8 oz) 138/74 <del>?</del> 163 <del>?</del> KW- CRL cons with dates. accepts NIPT. plans rc/s with SM. requesting MFM consult for placental location due to hx of previa. reassurance given 01/12/24<del>?</del> 14w 0d 194 lb 2 oz(+5 lb 2 oz) 128/80 <del>?</del> 140 <del>?</del> SM- no vb cramping 02/06/24<del>?</del> 17w 4d 201 lb 8 oz(+12 lb 8 oz) 134/82 Negative <del>?</del> Negative 140 <del>?</del> JV- no lof, vaginal bleeding, or cramping. no complaints. has anatomy scan ordered 03/06/24<del>?</del> 21w 5d 206 lb(+17 lb) 111/64 Negative <del>?</del> Negative 145 21 <del>?</del> KW- no vb/lof/ctx. good fm. doing well. considering TOLAC KW- no vb/lof/ctx. good fm. doing well. considering TOLAC. desires 3 hour gct instead of one hour 01/20/25<del>?</del> 24w 4d 210 lb(+21 lb) 120/76 Negative <del>?</del> Negative 147 <del>?</del> JV- pt is here for c/o drainage and pus from her incision that was 3 years ago. She denies fevers or chills. 04/05/24<del>?</del> 26w 0d 211 lb 6 oz(+22 lb 6 oz) 127/80 Negative <del>?</del> Negative 140 26 <del>?</del> Sm- no vb lof good fm nore gular ctx 04/18/24<del>?</del> 27w 6d 214 lb 8 oz(+25 lb 8 oz) 108/74 Negative <del>?</del> Negative 140 28 <del>?</del> SM- no vb lof good fm no reuglar ctx tdap 05/03/24<del>?</del> 30w 0d 216 lb 8 oz(+27 lb 8 oz) 115/76 Negative <del>?</del> Negative 134 32 <del>?</del> JV- no lof, vaginal bleeding, or dec fm. 3 HR GLUCOSE NORMAL 05/16/24<del>?</del> 31w 6d 220 lb 4 oz(+31 lb 4 oz) 113/77 Negative <del>?</del> Negative 130 33 <del>?</del> SM- no vb lof good fm n oreuglar ctx 05/30/24<del>?</del> 33w 6d 225 lb 6 oz(+36 lb 6 oz) 117/78 Negative <del>?</del> Negative 143 37 Cephalic <del>?</del> JV- no lof, vaginal bleeding, or dec fm. size/date discrep. ordering growth for 36 weeks. JV- no lof, vaginal bleeding, or dec fm. size/date discrep. ordering growth for 36 weeks. tolac consent signed today. 06/06/24<del>?</del> 34w 6d 224 lb 8 oz(+35 lb 8 oz) 115/75 Negative <del>?</del> Negative 140 37 Cephalic <del>?</del> SM- no vb lof good fm no reuglar ctx 06/14/24<del>?</del> 36w 0d 227 lb 6 oz(+38 lb 6 oz) 125/81 Negative <del>?</del> Negative 164 37.5 Cephalic <del>?</del> -4 JV- GBS collected, no lof, vaginal bleeding, or dec fm. normal growth scan. wants to still . has h/o one success. 06/20/24<del>?</del> 36w 6d 231 lb(+42 lb) 125/82 Negative <del>?</del> Negative 145 38 Cephalic 1<del>?</del> 0 -4 SM- no vb lof good m fno reulga rctx 06/28/24<del>?</del> 38w 0d 238 lb 3 oz(+49 lb 3 oz) 131/84 Negative <del>?</del> Negative 140 40 Cephalic <del>?</del> SM- no vb lof good fm no regular ctx 07/02/24<del>?</del> 38w 4d 235 lb 4 oz(+46 lb 4 oz) 135/84 Negative <del>?</del> Negative 118 43 Cephalic 1<del>?</del> -3 JV- no lof, vaginal bleeding, or dec fm. wants to return at 39 weeks for membrane strip. 07/05/24<del>?</del> 39w 0d 235 lb 2 oz(+46 lb 2 oz) 135/81 Negative <del>?</del> Negative 130 Cephalic <del>?</del> SM- no vb lof good fm no reuglar ctx unable to sweep 07/11/24<del>?</del> 39w 6d 237 lb 8 oz(+48 lb 8 oz) 136/85 Negative <del>?</del> Negative 160 40 Cephalic 1<del>?</del> SM- no vb lof good fm n oregular ctx plan RLTCS tuesday ACOG First Trimester First Trimester: Desire for , Alcohol, Tobacco Cessation, Illicit/Recreational Drug/Substance Use, Intimate Partner Violence, Barriers to care, Unstable Housing, Communication Barriers, Environmental/Work Hazards, Anticipated Course of Care, Toxoplasmosis Precations, Use of Any medications, Sexual activity, Exercise, Dental Care, Sauna/Hot tub use, Seat Belt use, Childbirth classes/Hospital facilities, Travel, Indications for Ultrasound and Screening for Aneuploidy; Discussed Second Trimester Second Trimester: Signs and Symptoms of Labor, Selecting a care provider, Reproductive Life Planning & Contreception, Care Planning, Tobacco Cessation, Depression/Anxiety and Intimate Partner Violence ROS Const Reports system reviewed and no additional complaints, except as documented Card Reports system reviewed and no additional complaints, except as documented Resp Reports system reviewed and no additional complaints, except as documented GI Reports system reviewed and no additional complaints, except as documented and Reports nausea Reports system reviewed and no additional complaints, except as documented Musc Reports system reviewed and no additional complaints, except as documented Exam Const General: cooperative, healthy appearing, comfortable and anxious HENMT Head: normal to inspection Nose: external nose normal Face and sinus: normal facial exam Neck Neck: normal visual inspection, full ROM and no lymphadenopathy Thyroid: thyroid normal Chest Chest palpation & inspection: normal inspection of the chest Resp Effort & Inspection: normal respiratory effort GI Inspection: normal to inspection Palpation: soft and other (gravid uterus) Other: vertex and appropriate size for gestational age Other: Cervical Exam: Extrem General: pedal edema Results POC Urinalysis 2 Dip (Clinic) Office Urine Glucose Negative Last Edit by Kayla Strong on 07/11/24 15:07 Office Urine Protein Negative Last Edit by Kayla Strong on 07/11/24 15:07 Coding Level of Care Code OB Routine Diagnoses Large for gestational age fetus Obesity affecting O99.210 Previous section Z98.891 Supervision of high-risk O09.90 39 weeks gestation of Z3A.39 Weeks of gestation: 39 weeks History of gestational diabetes mellitus (GDM) in prior , currently O09.299; Z86.32 Assessment and Plan Assessment and Plan (1) Large for gestational age fetus: Status: Acute Comment: normal growth at 36 weeks (2) Obesity affecting : Status: Acute Comment: [id number], normal 3 hr (3) Previous section: Status: Acute Comment: pt plans c section 07/13/24 with SM (40 weeks 1 day) for this but is desired for spontaneous labor (4) Supervision of high-risk : Status: Acute Comment: PRR , RUBEN 07/12/24, girl Carin JEREMIAS Cleopatra Alanis, AJ (5) : Status: Acute Qualifiers: Weeks of gestation: 39 weeks Qualified Code(s): Z3A.39 - 39 weeks gestation of Comment: Neg GBS. LR NIPT, declined carrier and afp screen. nl anatomy (6) History of gestational diabetes mellitus (GDM) in prior , currently : Status: Acute Comment: passed 3 hour gct Orders: Orders POC Urinalysis 2 Dip (Clinic) Today plan RLTCS
--- NOTE | 2024-07-13 15:19 | DCINST_ITS ---
Discharge Instructions Diet Discharge Diet: No restrictions DC O2, CPAP, BIPAP needs Home O2 Discharge instructions: No Dressing / Incision Discharge Activity: May Not Drive (for 2 weeks or while taking narcotic pain medications.), May Shower and May Take a Tub Bath (in 7 days) May shower in (days): 0 May resume sexual activity in: 4-6 weeks Weight Bearing Status: Full weight bearing Lifting Restrictions: 20 pounds Dressing / Incision Call your doctor if your incision/area has: Continuous Slow Oozing, Sudden Increased Bleeding, Increased Pain/ Swelling, Increased Redness and Foul Smelling Discharge Call your doctor if you observe: Fever of 101 or Higher and Using more than 1 pad per hour (for 2 hours) Suture Line Care: Avoid Pulling/Pushing and Avoid Pinching/Bending Cleanse incision/area with: Soap & Water and Keep Dressing Clean & Dry Follow Up Care Please Follow Up With: Yolanda Gunter MD When: Call [phone] to make an appointment for an incision check in 1-2 weeks. Test Results: Test results from this visit will be discussed in further detail at your follow- up appointment, if applicable. Discharge Plan Admission Admit Date/Time: 07/13/24 09:57 Attending Provider: Yolanda Gunter Primary Care Provider: Care PhysicianSugar Primary Discharge Orders/Prescriptions Prescriptions: New oxycodone-acetaminophen [Percocet] 5-325 mg tablet 1 tab PO Q4H PRN (Reason: pain) 7 Days Qty: 20 0RF naproxen 500 mg tablet 500 mg PO BID PRN PRN (Reason: Pain) Qty: 30 1RF No Action PNV-Taylor 28-1-300 mg capsule 1 cap PO DAILY Referrals / Follow Up: Care Physician,Sugar Primary [Primary Care Provider] - Disposition Disposition (needs filled in before D/C Order can be placed): Home, Self Care
[2024-07-13] MEDS: Ketorolac 30 MG/ML Syringe IV ×2 (15:52→21:55)
[2024-07-13] MEDS: Lactated Ringers 1,000 ML 100 ML IV (16:28)
[2024-07-14] MEDS: Enoxaparin 40 MG/0.4 ML Syringe SC (00:44)
[2024-07-14 01:26] VITALS: BP 118/78; PULSE 74; RESP 16; TEMP 36.6; O2SAT 98
--- NOTE | 2024-07-14 02:06 | PN.OBGYN_ITS ---
Subjective Subjective Patient doing well without complaints. Tolerating PO. Ambulating without difficulty, due to void after srinivasan removal. Feeding well. Denies chest pain, shortness of breath, calf pain/swelling, fevers, chills, lightheadedness. Objective Data Objective Data Vital Signs: Vital Signs Temp Pulse Resp BP Pulse Ox O2 Del Method 97.8 F 74 16 118/78 98 Room Air 07/14/24 01:07/14/24 01:26 07/14/24 01:07/14/24 01:07/14/24 01:07/13/24 23:22 Oxygen Delivery Method Room Air Weight: 238 lb 1.588 oz Body Mass Index (BMI) 39.6 Intake & Output: Intake and Output for Last 24 Hours 07/12/24 07/13/24 07/14/24 23:59 23:59 23:59 Intake Total 2335.83 / 2335.83 Output Total 1675 / 1675 Balance 660.83 / 660.83 Lab / Micro Data 07/13/24 10:30 Labs: Laboratory Results - last 24 hr 07/13/24 10:30: WBC 7.8, RBC 4.35, Hgb 11.7 L, Hct 35.6 L, MCV 81.8, MCH 26.9 L, MCHC 32.9, RDW Std Deviation 40.3, RDW Coeff of Kaylee 14.0, Plt Count 119 L, MPV 13.3 H, Immature Gran % (Auto) 1.200 H, Neut % (Auto) 72.9 H, Lymph % (Auto) 19.4, Hancock % (Auto) 5.0, Eos % (Auto) 1.2, Baso % (Auto) 0.3, Absolute Neuts (auto) 5.7, Absolute Lymphs (auto) 1.50, Nucleated RBC % 0, Syphilis Total Ab Nonreactive, Blood Type A POSITIVE, Antibody Screen NEGATIVE Physical Exam Const alert and oriented x3 Chest inspection of chest normal Resp normal respiratory effort, normal air movement and clear to auscultation bilaterally GI normal to inspection, nondistended, normoactive bowel sounds Uterus Palpation: uterus fundus firm Extremity normal to inspection, full ROM and no calf tenderness Skin no rashes or lesions noted Skin Narrative: dressing with marked drainage to 15% of dressing. intact. Psych mental status grossly normal Assessment & Plan (1) delivery delivered: COMMENT: SM RLTCS girl aubriella (2) Obesity affecting : COMMENT: [id number], normal 3 hr PLAN: Plan s/p LTCS PPD # 1 1. routine post care 2. breast feeding- support given 3. rh positive 4. rubella immune 5. desires early d/c later today. if voiding, pain managed and infant stable for d/c may be discharged. has plan in place for support with other children.
[2024-07-14] MEDS: Ketorolac 30 MG/ML Syringe IV ×2 (04:21→10:31)
[2024-07-14] MEDS: 0.9% Saline Lock 10 ML Syringe IV ×2 (04:22→10:19)
[2024-07-14 04:26] VITALS: BP 113/64; PULSE 57; RESP 16; TEMP 36.6; O2SAT 98
[2024-07-14] MEDS: Acetaminophen 500 MG Tablet 1000 MG PO ×3 (05:16→17:24)
[2024-07-14 05:32] LABS: Hematocrit 31.2 % (37-47); Hemoglobin 9.9 g/dL (12.0-15.0); Mean Corp Hgb Conc 31.7 g/dL (32-36); Mean Corpuscular Hgb 26.7 pg (27.0-32.0); Mean Corpuscular Volume 84.1 fL (81-99); Mean Platelet Vol. 12.5 fl (6.2-12.0); POSITIVE COUNT YES; Platelet Count 87 K/mm3 (150-450); RBC Distribution Width CV 14.1 % (11.6-14.6); RBC Distribution Width SD 42.5 fl (35.1-43.9); Red Blood Count 3.71 M/mm3 (4.2-5.4); White Blood Count 8.3 K/mm3 (4.4-11.0)
[2024-07-14 06:26] LABS: Scan Indicated on CBC? Y/N YES- FLAGS NOTED
[2024-07-14 08:24] VITALS: BP 115/65; PULSE 70; RESP 16; TEMP 36.3; O2SAT 99
[2024-07-14] MEDS: Senna/Docusate Sodium 1 Tablet PO (10:18)
[2024-07-14] MEDS: Ferrous Sulfate 325 MG Tablet PO (11:43)
[2024-07-14 13:29] VITALS: BP 132/78; PULSE 77; RESP 16; TEMP 36.6; O2SAT 95
--- NOTE | 2024-07-14 14:55 | CASEMGMT ---
Social Work Assessment Labor and Delivery Unit Patient Address:[facility] [place] [id number] Phone number: [phone] Date of Referral: 07/14/2024 Time of Referral: 10:53 Referred By: Yolanda Gunter Date of Intervention: 07/14/2024? Time of Intervention:? 14:56 Reason for Referral:? Anxiety and SDOH History obtained from: Medical records and mother of baby (MOB). ? Household composition: MOB, father of baby(FOB), their 5-year-old daughter Cleopatra, 3-year-old daughter Annabelle and daughter Carin, born on 07/13/2025. Patient's parent/guardian status: MOB and FOB have been together for 12 years and for 6. MOB described a positive relationship with the FOB and denied any DV. ? Medical History: ?: 4, Para: now 3. MOB had 1 SAB. MOB received PNC through [facility] beginning at 10 weeks and 0 days. Visits were routine. Apgars: 8n and 9. Weight: 9lbs, 2oz. Ramp Boss: Roe. Educational Status: MOB denied any issues or concerns with reading or writing either with herself or with the FOB. MOB earned her BS degree in Science/biology and the FOB earned his high school diploma. ? Financial Status: MOB reported the household income is sufficient to meet the needs of her family at this time. MOB is employed full-time at [employer] and the FOB is employed full-time with [employer].? Supplies: MOB reported she has all of the supplies she needs for baby at this time including but not limited to: Cars seat, bassinet, crib, diapers, bottles, breast pump and clothing. Childcare/Caregiver(s): Both MOB and FOB will provide care for . ?MOB reported she gets 14 weeks of maternity leave and after that, has a freezer worker who will be providing care for during the time she and the FOB are working. Transportation:? MOB reported she and the FOB are both licensed drivers with a reliable vehicle to take baby to and from all medical appointments. No transportation issues identified. Programs/Agencies Involved: MOB denied any current programs or agencies involved at this time. ??? Children Services/Legal Issues:? Denied. Behavioral Health Issues: ??Mental Health History:? LOCO reported she has ADHD, is not on any medication at this time and reported symptoms are effectively managed. MOB denied ever having any diagnosis or concerns with anxiety. ??Substance Use History: MOB reported she drinks alcohol a few times a month however denied any abuse either with herself or with the FOB. ?Family History: MOB reported her father is an alcoholic and her paternal grandmother smokes weed. ???Drug Screens: ?None obtained during this admission. Family/Social Stressors: Denied. Support Systems: Ample. LOCO identified her biggest support as the FOB, as well as her mother and her sister, Aide, both local. ?? Depression/Shaken Baby/Safe Sleeping: group social worker provided verbal and written education on PPD, Safe Sleeping and Shaken Baby.? MOB verbalized an understanding. ??? ASSESSMENT:? MOB provided consent to social work visit. At the time social media coordinator arrived, was sleeping in the crib and the MOB was standing to stretch and walk around a little bit. MOB was verbally engaged and cooperative. MOB denied ever having reported any food securities, described ample income to meet all of her families? basic needs and denied a need for any resources for food. 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 MOB stated the reported food insecurity was a mistake somewhere down the line and denied it being an issue for her or her family. Safe Plan of Care for infant related to substance use: N/A; not needed. ? PLAN:? Baby to be discharged home.? group social worker also provided written information on depression, depression resources and Help Me Grow. ?No other services requested or indicated. Mary Owen, FLIGHT TEST SUPERVISOR, CHOP SAW OPERATOR
[2024-07-14] MEDS: Naproxen 500 MG Tablet PO (15:44)
[2024-07-14 18:59] VITALS: BP 134/65; PULSE 74; RESP 18; TEMP 36.6; O2SAT 95
== END 2024-07-14 19:34 | disposition home or self-care (01) | DRG 788 ==
PROVIDERS: Admitting Provider Obstetrics & Gynecology; Referring Provider Obstetrics & Gynecology; Visit Provider Obstetrics & Gynecology
PROC: 10D00Z1 Extraction of Products of Conception, Low, Open Approach (ICD-10-PCS; CPT 59514; principal; 2024-07-13 11:45)
DX: O36.63X0 Maternal care for excessive fetal growth, third trimester, not applicable or unspecified (principal); O99.214 Obesity complicating childbirth; F90.9 Attention-deficit hyperactivity disorder, unspecified type; O99.344 Other mental disorders complicating childbirth; O34.211 Maternal care for low transverse scar from previous cesarean delivery; Z37.0 Single live birth; Z3A.40 40 weeks gestation of pregnancy; Z86.32 Personal history of gestational diabetes
CPT/HCPCS: 59050; 85025; 85027; 86780; 86850; 86900; 86901; 99221; A4216; G0378; J2405